=== PATIENT | male | born 1945 | race Caucasian/White ===

== ENCOUNTER → 2017-12-05 | Day surgery (SDC) | payer MEDICARE, BC ==
[~2017-12-05] MED LIST: Lactated Ringers 1,000 ML IV SCH; Propofol 200 MG/20 ML SDV IV ONE
--- NOTE | 2017-12-05 10:16 | OR ---
DATE OF OPERATION: 12/05/2017 PREOPERATIVE DIAGNOSIS: FAMILY HISTORY OF COLON CANCER. POSTOPERATIVE DIAGNOSIS: COLITIS. SURGEON: Jose J Howe MD PROCEDURE: FULL LENGTH COLONOSCOPY WITH BIOPSIES X4. ANESTHESIA: IMAGING TECH due to history of MS. COMPLICATIONS: None. SPECIMEN: Left-sided colon biopsies x4. FINDINGS: 1. Full-length colonoscopy. 2. Nonspecific and mild sigmoid and rectosigmoid colitis. RECOMMENDATIONS: Medical followup with Dr. Pelayo for routine colonoscopy every 5 years for family history of colon cancer. INDICATIONS: The patient was in for a physical. It had been 5 years since his last colonoscopy. He has a family history of colon cancer. DESCRIPTION OF PROCEDURE: The patient was prepped and draped, placed in the left lateral decubitus position. A lubricated Olympus colonoscope was inserted and safely and easily advanced to the cecum. Direct visualization of the ileocecal valve and appendiceal orifice was accomplished and the bowel prep was fine. Upon withdrawal of the scope, the cecum, ascending, transverse colon were completely benign. In the left colon starting in the mid sigmoid area and running to the rectosigmoid junction, the patient had a nonspecific and very mild colitis. No ulcerative changes. Biopsies x4 were taken randomly from the mid sigmoid to the rectosigmoid junction. There were no polyps, masses, ulcerations, or bleeding sites. No vascular abnormalities or signs of diverticula. The rectal vault was benign. Retroflexion of scope in the rectum showed no perianal lesions other than some hemorrhoids. Air was suctioned. Scope was removed without complication. STACI/BALDOMERO /[id number]
== END ==
LOC: CC.SDS 06:24
PROVIDERS: ATTEND Family Medicine
DX: K52.9 Noninfective gastroenteritis and colitis, unspecified (principal); M19.90 Unspecified osteoarthritis, unspecified site; N40.0 Benign prostatic hyperplasia without lower urinary tract symptoms; I10 Essential (primary) hypertension; I25.10 Atherosclerotic heart disease of native coronary artery without angina pectoris; J21.9 Acute bronchiolitis, unspecified; K21.9 Gastro-esophageal reflux disease without esophagitis; E55.9 Vitamin D deficiency, unspecified; E78.5 Hyperlipidemia, unspecified; E11.9 Type 2 diabetes mellitus without complications; G35 Multiple sclerosis; Z79.4 Long term (current) use of insulin; Z79.82 Long term (current) use of aspirin; Z79.899 Other long term (current) drug therapy; Z88.1 Allergy status to other antibiotic agents; Z88.2 Allergy status to sulfonamides; Z80.0 Family history of malignant neoplasm of digestive organs
CPT/HCPCS: 82962; J2704; J7120

== ENCOUNTER 2020-06-19 19:29 | Inpatient (IN) | payer MEDICARE, BC ==
--- NOTE | 2020-06-19 19:53 | EDM.PDOC ---
ED HPI GENERAL MEDICAL PROBLEM - General Chief Complaint: General Stated Complaint: fever weakness Time Seen by Provider: 06/19/20 19:45 Source of Information: Reports: Patient History Limitations: Reports: No Limitations - History of Present Illness INITIAL COMMENTS - FREE TEXT/NARRATIVE: States that yesterday he had shaking chills and fever and couldn't warm up took ibuprofen and fever broke and he felt better. This morning he was fine and ate normal dinner and then started with chills and fever again. He denies any pain. No cough. Did vomit once this evening and has not had any nausea or vomiting or diarrhea. No dysuria or frequency of urination. He has history of MS and notes that as soon as he gets sick he has problems with his right leg getting weaker and difficulty walking and this is his normal response. He has not had any neuro changes or symptoms other than that. He feels weak but he attributes that to his fever. Has been trying to increase his water intake because of his temp. Onset: Gradual Onset Date: 06/19/20 Location: Reports: Generalized Associated Symptoms: Reports: Fever/Chills, Weakness. Denies: Chest Pain, Cough, Headaches, Shortness of Breath - Related Data Allergies Allergy/AdvReac Type Severity Reaction Status Date / Time cefuroxime Allergy Shortness Verified 06/19/20 19:37 of Breath Sulfa (Sulfonamide Allergy Hives Verified 06/19/20 19:37 Antibiotics) Home Meds: Home Meds Aspirin 325 mg PO BEDTIME 06/22/14 [History] Cholecalciferol (Vitamin D3) [Vitamin D] 5,000 mg PO DAILY 06/22/14 [History] Dalfampridine [Ampyra] 10 mg PO Q12HR 06/22/14 [History] Insulin Detemir [Levemir] 38 unit SQ BID 06/22/14 [History] Lisinopril 5 mg PO DAILY 06/22/14 [History] Naproxen Sodium [Aleve] 440 mg PO DAILY 06/22/14 [History] atorvaSTATin [Lipitor] 20 mg PO BEDTIME 06/22/14 [History] Interferon Beta-1b [Betaseron] 1 ml SUBCUT Q48H 12/04/17 [History] Magnesium 500 mg PO DAILY 12/04/17 [History] Metoprolol Tartrate 25 mg PO BID 12/04/17 [History] Testosterone Cypionate 200 mg IM Q30D 12/04/17 [History] Folic Acid 1 mg PO DAILY 06/19/20 [History] SitaGLIPtin [Januvia] 100 mg PO DAILY 06/19/20 [History] Past Medical History Cardiovascular History: Reports: High Cholesterol, Hypertension Neurological History: Reports: MS Endocrine/Metabolic History: Reports: Diabetes, Type II - Past Surgical History Cardiovascular Surgical History: Reports: Coronary Artery Bypass Social & Family History - Tobacco Use Tobacco Use Status *Q: Never Tobacco User - Living Situation & Occupation Living situation: Reports: , with Spouse Occupation: Retired ED ROS GENERAL - Review of Systems Review Of Systems: See Below Constitutional: Reports: Fever, Chills, Weakness HEENT: Reports: No Symptoms Respiratory: Denies: Shortness of Breath, Cough Cardiovascular: Denies: Chest Pain, Edema GI/Abdominal: Denies: Abdominal Pain, Constipation, Diarrhea, Nausea, Vomiting : Denies: Dysuria, Flank Pain, Frequency, Urgency Musculoskeletal: Reports: Other (rightl leg weakness due to the MS) Skin: Reports: No Symptoms Neurological: Reports: Difficulty Walking (due to MS. Wears a brace on the right leg.). Denies: Confusion, Dizziness, Headache, Syncope Psychiatric: Denies: Anxiety, Confusion ED EXAM, GENERAL - Physical Exam Exam: See Below Exam Limited By: No Limitations General Appearance: Alert, Mild Distress Ears: Normal External Exam, Normal TMs Nose: Normal Inspection Throat/Mouth: Normal Inspection, Normal Oropharynx Head: Atraumatic, Normocephalic Neck: Normal Inspection, Supple, Full Range of Motion Respiratory/Chest: No Respiratory Distress, Lungs Clear, Normal Breath Sounds Cardiovascular: Regular Rate, Rhythm, No Edema GI/Abdominal: Normal Bowel Sounds, Soft, Non-Tender Extremities: Normal Inspection, Normal Range of Motion, Non-Tender, No Pedal Edema, Normal Capillary Refill Neurological: Alert, Oriented, Normal Cognition Skin Exam: Warm, Dry, Intact, Normal Color Course - Vital Signs Last Recorded V/S: Last Vital Signs Temp 102 F H 06/19/20 19:50 Pulse 96 06/19/20 19:50 Resp 18 06/19/20 20:24 BP 138/55 L 06/19/20 20:24 Pulse Ox 97 06/19/20 20:24 - Orders/Labs/Meds Orders: Active Orders 24 hr Category Date Time Status Chest 1V Frontal [CR] Stat Exams 06/19/20 19:34 Taken CULTURE BLOOD [BC] Stat Lab 06/19/20 20:10 Received CULTURE BLOOD [BC] Stat Lab 06/19/20 20:16 Received Blood Culture x2 Reflex Set [OM.PC] Stat Oth 06/19/20 20:07 Ordered Medication Orders Acetaminophen (Tylenol) 650 mg PO Q4H PRN PRN Reason: Pain (Mild 1-3)/fever Aspirin (Aspirin) 325 mg PO BEDTIME [facility] Atorvastatin Calcium (Lipitor) 20 mg PO BEDTIME [facility] Ceftriaxone Sodium (Rocephin) 1 gm IVPUSH Q24H [facility] Enoxaparin Sodium (Lovenox) 30 mg SUBCUT Q24H [facility] Folic Acid (Folic Acid) 1 mg PO DAILY [facility] Dextrose/Sodium Chloride (Dextrose 5%-1/2 Ns) 1,000 mls @ 100 mls/hr IV ASDIRECTED [facility] Azithromycin 500 mg/ Sodium (Chloride) 250 mls @ 250 mls/hr IV Q24H [facility] Lisinopril (Prinivil) 5 mg PO DAILY [facility] Metoprolol Tartrate (Lopressor) 25 mg PO BID [facility] Non-Formulary Medication (Dalfampridine [Ampyra]) 10 mg PO Q12HR [facility] Non-Formulary Medication (Insulin Detemir) 38 unit SQ BID [facility] Non-Formulary Medication (Interferon Beta-1b [Betaseron]) 1 ml SUBCUT Q48H [facility] Non-Formulary Medication (Magnesium [Magnesium]) 500 mg PO DAILY [facility] Non-Formulary Medication (Sitagliptin) 100 mg PO DAILY [facility] Labs: Laboratory Tests 06/19/20 06/19/20 06/19/20 Range/Units 07:45 07:45 07:45 WBC 13.6 H (5.0-10.0) 10^3/uL RBC 5.10 (4.50-6.00) 10^6/uL Hgb 15.4 (14.0-18.0) g/dL Hct 45.4 (40.0-54.0) % MCV 89.0 (82.0-94.0) fL MCH 30.2 (27.0-32.0) pg MCHC 33.9 (33.0-38.0) g/dL RDW Coeff of Laura 16.0 H (11.0-15.0) % Plt Count 200 (150-400) 10^3/uL Neut % (Auto) 85.8 H (35-85) % Lymph % (Auto) 7.0 L (10-55) % Arthur % (Auto) 7.0 (0-16) % Eos % (Auto) 0.1 (0-5) % Baso % (Auto) 0.1 (0-3) % Neut # (Auto) 11.70 H (1.80-7.00) 10^3/uL Lymph # (Auto) 0.95 L (1.00-4.80) 10^3/uL Arthur # (Auto) 0.95 H (0.00-0.80) 10^3/uL Eos # (Auto) 0.02 (0.00-0.45) 10^3/uL Baso # (Auto) 0.02 10^3/uL PT 10.5 (9.7-12.3) SEC INR 1.04 (0.92-1.18) D-Dimer, Quantitative 1.36 H (0.00-0.50) Sodium 134 L (136-145) mEq/L Potassium 5.1 H (3.5-5.0) mEq/L Chloride 100 (98-106) mEq/L Carbon Dioxide 27 (21-32) mmol/L BUN 49 H D (7-18) mg/dL Creatinine 2.5 H D (0.7-1.3) mg/dL Est Cr Clr Drug Dosing 27.17 mL/min Estimated GFR (MDRD) 25 L (>=60) mL/min Glucose 113 H D (75-99) mg/dL Lactic Acid (0.4-2.0) mmol/L Calcium 9.6 (8.4-10.1) mg/dL Total Bilirubin 0.5 (0.0-1.0) mg/dL AST 20 (15-37) U/L ALT 30 (12-78) U/L Alkaline Phosphatase 76 (46-116) U/L Creatine Kinase 131 (35-232) U/L Troponin I < 0.017 (0.00-0.06) ng/mL C-Reactive Protein (0.2-0.8) mg/dL NT-Pro-B Natriuret Pep 752 (0-1000) pg/mL Total Protein 8.3 H (6.4-8.2) g/dL Albumin 3.5 (3.4-5.0) g/dL Urine Color (YELLOW) Urine Appearance (CLEAR) Urine pH (4.5-8.0) Ur Specific [place] (1.003-1.020) Urine Protein (NEGATIVE) mg/dL Urine Glucose (UA) (NEGATIVE) mg/dL Urine Ketones (NEGATIVE) mg/dL Urine Occult Blood (NEGATIVE) Urine Nitrite (NEGATIVE) Urine Bilirubin (NEGATIVE) Urine Urobilinogen (0.2-1.0) EU/dL Ur Leukocyte Esterase (NEGATIVE) Urine RBC (0-5) /HPF Urine WBC (0-5) /HPF Ur Epithelial Cells (NOT SEEN) /HPF SARS CoV-2 RNA Rapid QAMAR (NEGATIVE) 06/19/20 06/19/20 06/19/20 Range/Units 07:45 19:32 20:00 WBC (5.0-10.0) 10^3/uL RBC (4.50-6.00) 10^6/uL Hgb (14.0-18.0) g/dL Hct (40.0-54.0) % MCV (82.0-94.0) fL MCH (27.0-32.0) pg MCHC (33.0-38.0) g/dL RDW Coeff of Laura (11.0-15.0) % Plt Count (150-400) 10^3/uL Neut % (Auto) (35-85) % Lymph % (Auto) (10-55) % Arthur % (Auto) (0-16) % Eos % (Auto) (0-5) % Baso % (Auto) (0-3) % Neut # (Auto) (1.80-7.00) 10^3/uL Lymph # (Auto) (1.00-4.80) 10^3/uL Arthur # (Auto) (0.00-0.80) 10^3/uL Eos # (Auto) (0.00-0.45) 10^3/uL Baso # (Auto) 10^3/uL PT (9.7-12.3) SEC INR (0.92-1.18) D-Dimer, Quantitative (0.00-0.50) Sodium (136-145) mEq/L Potassium (3.5-5.0) mEq/L Chloride (98-106) mEq/L Carbon Dioxide (21-32) mmol/L BUN (7-18) mg/dL Creatinine (0.7-1.3) mg/dL Est Cr Clr Drug Dosing mL/min Estimated GFR (MDRD) (>=60) mL/min Glucose (75-99) mg/dL Lactic Acid 0.9 (0.4-2.0) mmol/L Calcium (8.4-10.1) mg/dL Total Bilirubin (0.0-1.0) mg/dL AST (15-37) U/L ALT (12-78) U/L Alkaline Phosphatase (46-116) U/L Creatine Kinase (35-232) U/L Troponin I (0.00-0.06) ng/mL C-Reactive Protein 18.5 H (0.2-0.8) mg/dL NT-Pro-B Natriuret Pep (0-1000) pg/mL Total Protein (6.4-8.2) g/dL Albumin (3.4-5.0) g/dL Urine Color (YELLOW) Urine Appearance (CLEAR) Urine pH (4.5-8.0) Ur Specific [place] (1.003-1.020) Urine Protein (NEGATIVE) mg/dL Urine Glucose (UA) (NEGATIVE) mg/dL Urine Ketones (NEGATIVE) mg/dL Urine Occult Blood (NEGATIVE) Urine Nitrite (NEGATIVE) Urine Bilirubin (NEGATIVE) Urine Urobilinogen (0.2-1.0) EU/dL Ur Leukocyte Esterase (NEGATIVE) Urine RBC (0-5) /HPF Urine WBC (0-5) /HPF Ur Epithelial Cells (NOT SEEN) /HPF SARS CoV-2 RNA Rapid QAMAR Negative (NEGATIVE) 06/19/20 Range/Units 20:36 WBC (5.0-10.0) 10^3/uL RBC (4.50-6.00) 10^6/uL Hgb (14.0-18.0) g/dL Hct (40.0-54.0) % MCV (82.0-94.0) fL MCH (27.0-32.0) pg MCHC (33.0-38.0) g/dL RDW Coeff of Laura (11.0-15.0) % Plt Count (150-400) 10^3/uL Neut % (Auto) (35-85) % Lymph % (Auto) (10-55) % Arthur % (Auto) (0-16) % Eos % (Auto) (0-5) % Baso % (Auto) (0-3) % Neut # (Auto) (1.80-7.00) 10^3/uL Lymph # (Auto) (1.00-4.80) 10^3/uL Arthur # (Auto) (0.00-0.80) 10^3/uL Eos # (Auto) (0.00-0.45) 10^3/uL Baso # (Auto) 10^3/uL PT (9.7-12.3) SEC INR (0.92-1.18) D-Dimer, Quantitative (0.00-0.50) Sodium (136-145) mEq/L Potassium (3.5-5.0) mEq/L Chloride (98-106) mEq/L Carbon Dioxide (21-32) mmol/L BUN (7-18) mg/dL Creatinine (0.7-1.3) mg/dL Est Cr Clr Drug Dosing mL/min Estimated GFR (MDRD) (>=60) mL/min Glucose (75-99) mg/dL Lactic Acid (0.4-2.0) mmol/L Calcium (8.4-10.1) mg/dL Total Bilirubin (0.0-1.0) mg/dL AST (15-37) U/L ALT (12-78) U/L Alkaline Phosphatase (46-116) U/L Creatine Kinase (35-232) U/L Troponin I (0.00-0.06) ng/mL C-Reactive Protein (0.2-0.8) mg/dL NT-Pro-B Natriuret Pep (0-1000) pg/mL Total Protein (6.4-8.2) g/dL Albumin (3.4-5.0) g/dL Urine Color Yellow (YELLOW) Urine Appearance Slightly cloudy (CLEAR) Urine pH 5.5 (4.5-8.0) Ur Specific [place] 1.025 H (1.003-1.020) Urine Protein 30 H (NEGATIVE) mg/dL Urine Glucose (UA) Negative (NEGATIVE) mg/dL Urine Ketones Negative (NEGATIVE) mg/dL Urine Occult Blood Negative (NEGATIVE) Urine Nitrite Negative (NEGATIVE) Urine Bilirubin Negative (NEGATIVE) Urine Urobilinogen 0.2 (0.2-1.0) EU/dL Ur Leukocyte Esterase Negative (NEGATIVE) Urine RBC 0-5 (0-5) /HPF Urine WBC 0-5 (0-5) /HPF Ur Epithelial Cells Few H (NOT SEEN) /HPF SARS CoV-2 RNA Rapid QAMAR (NEGATIVE) Meds: Medications Generic Name Dose Route Start Last Admin Trade Name Freq PRN Reason Stop Dose Admin Acetaminophen 650 mg 06/19/20 21:32 Tylenol PO Q4H PRN Pain (Mild 1-3)/fever Aspirin 325 mg 06/20/20 20:00 Aspirin PO BEDTIME [facility] Atorvastatin Calcium 20 mg 06/20/20 20:00 Lipitor PO BEDTIME [facility] Ceftriaxone Sodium 1 gm 06/19/20 21:45 Rocephin IVPUSH Q24H [facility] Enoxaparin Sodium 30 mg 06/19/20 21:45 Lovenox SUBCUT Q24H [facility] Folic Acid 1 mg 06/20/20 08:00 Folic Acid PO DAILY [facility] Dextrose/Sodium Chloride 1,000 mls @ 100 mls/hr 06/19/20 21:45 Dextrose 5%-1/2 Ns IV ASDIRECTED [facility] Azithromycin 500 mg/ Sodium 250 mls @ 250 mls/hr 06/19/20 21:45 Chloride IV Q24H [facility] Lisinopril 5 mg 06/20/20 08:00 Prinivil PO DAILY [facility] Metoprolol Tartrate 25 mg 06/20/20 08:00 Lopressor PO BID [facility] Non-Formulary Medication 10 mg 06/19/20 21:45 Dalfampridine [Ampyra] PO Q12HR [facility] Non-Formulary Medication 38 unit 06/20/20 08:00 Insulin Detemir SQ BID [facility] Non-Formulary Medication 1 ml 06/19/20 21:45 Interferon Beta-1b [Betaseron] SUBCUT Q48H [facility] Non-Formulary Medication 500 mg 06/20/20 08:00 Magnesium [Magnesium] PO DAILY [facility] Non-Formulary Medication 100 mg 06/20/20 08:00 Sitagliptin PO DAILY [facility] - Re-Assessments/Exams Free Text/Narrative Re-Assessment/Exam: 06/19/20 21:05Discussed pt with Dr. Howe and he agrees with admission and plan of care. Departure - Departure Time of Disposition: 21:55 Disposition: Admitted As Inpatient 68 Clinical Impression: Fever of unknown origin, Acute renal insufficiency Clinical Impression: (Ruled Out): Renal injury - Discharge Information *PRESCRIPTION DRUG MONITORING PROGRAM REVIEWED*: Not Applicable *COPY OF PRESCRIPTION DRUG MONITORING REPORT IN PATIENT ROEL: Not Applicable Sepsis Event Note (ED) - Focused Exam Vital Signs: Vital Signs Temp Pulse Resp BP Pulse Ox 06/19/20 20:24 18 138/55 L 97 06/19/20 19:50 102 F H 96 18 169/74 H 97 - Problem List & Annotations (1) Fever of unknown origin SNOMED Code(s): 2316747 Code(s): R50.9 - FEVER, UNSPECIFIED Status: Acute Priority: High Current Visit: Yes (2) Acute renal insufficiency SNOMED Code(s): 435591731 Code(s): N28.9 - DISORDER OF KIDNEY AND URETER, UNSPECIFIED Status: Acute Priority: High Current Visit: Yes - Problem List Review Problem List Initiated/Reviewed/Updated: Yes - My Orders Last 24 Hours: My Active Orders 06/19/20 19:34 Chest 1V Frontal [CR] Stat 06/19/20 20:07 Blood Culture x2 Reflex Set [OM.PC] Stat 06/19/20 20:10 CULTURE BLOOD [BC] Stat 06/19/20 20:16 CULTURE BLOOD [BC] Stat - Assessment/Plan Admission H&P: Please use this note as an admission H&P Last 24 Hours: My Active Orders 06/19/20 19:34 Chest 1V Frontal [CR] Stat 06/19/20 20:07 Blood Culture x2 Reflex Set [OM.PC] Stat 06/19/20 20:10 CULTURE BLOOD [BC] Stat 06/19/20 20:16 CULTURE BLOOD [BC] Stat Plan: Pt will be admitted with sepsis workup due to the fever of unknown origin. will hydrate and monitor his creatinine as that is elevated. will do daily labs to monitor Repeat CXR in the AM If creatinine improves may need to consider CT for PE protocol
[2020-06-19 20:12] LABS: CHLORIDE,CL 100 mEq/L (98-106); SODIUM,NA 134 mEq/L (136-145)
[2020-06-19] MEDS ORDERED: Dextrose 5%-0.45% NaCl 1,000 ML IV SCH (21:45)
[2020-06-19] MEDS ORDERED: cefTRIAXone 1 GM Vial IVPUSH SCH (22:00)
[2020-06-19] MEDS: Enoxaparin 30 MG/0.3 ML Syringe SUBCUT SCH (22:54)
[2020-06-19] MEDS: Acetaminophen 325 MG Tab PO PRN (22:59)
[2020-06-19] MEDS ORDERED: Azithromycin 500 MG in Sodium Chloride 0.9% 250 ML IV SCH (23:00)
[2020-06-20] MEDS: Acetaminophen 325 MG Tab PO PRN (04:11)
[2020-06-20] MEDS: Lisinopril 5 MG Tab PO SCH (07:59)
[2020-06-20] MEDS: Metoprolol Tartrate 25 MG Tab PO SCH ×2 (07:59→19:39)
[2020-06-20] MEDS ORDERED: DALFAMPRIDINE 10 MG PO SCH (08:00)
[2020-06-20] MEDS: Folic Acid 1 MG Tab PO SCH (08:00)
[2020-06-20] MEDS: Insulin Glarg,Human.Rec.Analog 100 Unit/ML SUBCUT SCH ×2 (08:07→19:40)
[2020-06-20] MEDS ORDERED: INTERFERON BETA 1B SUBCUT SCH (09:00)
--- NOTE | 2020-06-20 09:53 | PCM.PN ---
- General Info Date of Service: 06/20/20 Admission Dx/Problem (Free Text): Fever unknown etiology Subjective Update: Shady is a 75 yo gentleman who was admitted yesterday secondary to fever/chills. Symptoms had started Friday and yesterday had progressively worsened. Was able to get some relief with ibuprofen in regards to his fevers. States yesterday morning he felt fine and ate normal dinner and then started with chills and fever again. He denies any discomfort. States he has had a lingering cough for awhile but no other upper respiratory symptoms. Denies any GI complaints, no nausea, vomiting or diarrhea. No dysuria or frequency of urination. He has history of MS and notes that as soon as he gets sick he has problems with his right leg getting weaker and difficulty walking and this is his normal response. States it is a lot better today. Overal today he feels back to his normal self. Denies any concerns at this time. Has been drinking fluids okay. Functional Status: Reports: Tolerating Diet, Ambulating, Urinating - Review of Systems General: Denies: Fever, Chills HEENT: Reports: No Symptoms Pulmonary: Reports: No Symptoms Cardiovascular: Reports: No Symptoms Gastrointestinal: Reports: No Symptoms Genitourinary: Reports: No Symptoms Musculoskeletal: Reports: No Symptoms Neurological: Reports: No Symptoms Psychiatric: Reports: No Symptoms - Patient Data Vitals - Most Recent: Last Vital Signs Temp 97.9 F 06/20/20 07:53 Pulse 71 06/20/20 07:59 Resp 18 06/20/20 07:53 BP 106/40 L 06/20/20 07:59 Pulse Ox 96 06/20/20 07:53 Weight - Most Recent: 248 lb Lab Results Last 24 Hours: Laboratory Results - last 24 hr 06/19/20 06/19/20 06/19/20 Range/Units 07:45 07:45 07:45 WBC 13.6 H (5.0-10.0) 10^3/uL RBC 5.10 (4.50-6.00) 10^6/uL Hgb 15.4 (14.0-18.0) g/dL Hct 45.4 (40.0-54.0) % MCV 89.0 (82.0-94.0) fL MCH 30.2 (27.0-32.0) pg MCHC 33.9 (33.0-38.0) g/dL RDW Coeff of Laura 16.0 H (11.0-15.0) % Plt Count 200 (150-400) 10^3/uL Neut % (Auto) 85.8 H (35-85) % Lymph % (Auto) 7.0 L (10-55) % [place] % (Auto) 7.0 (0-16) % Eos % (Auto) 0.1 (0-5) % Baso % (Auto) 0.1 (0-3) % Neut # (Auto) 11.70 H (1.80-7.00) 10^3/uL Lymph # (Auto) 0.95 L (1.00-4.80) 10^3/uL [place] # (Auto) 0.95 H (0.00-0.80) 10^3/uL Eos # (Auto) 0.02 (0.00-0.45) 10^3/uL Baso # (Auto) 0.02 10^3/uL PT 10.5 (9.7-12.3) SEC INR 1.04 (0.92-1.18) D-Dimer, Quantitative 1.36 H (0.00-0.50) Sodium 134 L (136-145) mEq/L Potassium 5.1 H (3.5-5.0) mEq/L Chloride 100 (98-106) mEq/L Carbon Dioxide 27 (21-32) mmol/L BUN 49 H D (7-18) mg/dL Creatinine 2.5 H D (0.7-1.3) mg/dL Est Cr Clr Drug Dosing 27.17 mL/min Estimated GFR (MDRD) 25 L (>=60) mL/min Glucose 113 H D (75-99) mg/dL Lactic Acid (0.4-2.0) mmol/L Calcium 9.6 (8.4-10.1) mg/dL Total Bilirubin 0.5 (0.0-1.0) mg/dL AST 20 (15-37) U/L ALT 30 (12-78) U/L Alkaline Phosphatase 76 (46-116) U/L Creatine Kinase 131 (35-232) U/L Troponin I < 0.017 (0.00-0.06) ng/mL C-Reactive Protein (0.2-0.8) mg/dL NT-Pro-B Natriuret Pep 752 (0-1000) pg/mL Total Protein 8.3 H (6.4-8.2) g/dL Albumin 3.5 (3.4-5.0) g/dL Urine Color (YELLOW) Urine Appearance (CLEAR) Urine pH (4.5-8.0) Ur Specific Harvey (1.003-1.020) Urine Protein (NEGATIVE) mg/dL Urine Glucose (UA) (NEGATIVE) mg/dL Urine Ketones (NEGATIVE) mg/dL Urine Occult Blood (NEGATIVE) Urine Nitrite (NEGATIVE) Urine Bilirubin (NEGATIVE) Urine Urobilinogen (0.2-1.0) EU/dL Ur Leukocyte Esterase (NEGATIVE) Urine RBC (0-5) /HPF Urine WBC (0-5) /HPF Ur Epithelial Cells (NOT SEEN) /HPF SARS CoV-2 RNA Rapid QAMAR (NEGATIVE) 06/19/20 06/19/20 06/19/20 Range/Units 07:45 19:32 20:00 WBC (5.0-10.0) 10^3/uL RBC (4.50-6.00) 10^6/uL Hgb (14.0-18.0) g/dL Hct (40.0-54.0) % MCV (82.0-94.0) fL MCH (27.0-32.0) pg MCHC (33.0-38.0) g/dL RDW Coeff of Laura (11.0-15.0) % Plt Count (150-400) 10^3/uL Neut % (Auto) (35-85) % Lymph % (Auto) (10-55) % [place] % (Auto) (0-16) % Eos % (Auto) (0-5) % Baso % (Auto) (0-3) % Neut # (Auto) (1.80-7.00) 10^3/uL Lymph # (Auto) (1.00-4.80) 10^3/uL [place] # (Auto) (0.00-0.80) 10^3/uL Eos # (Auto) (0.00-0.45) 10^3/uL Baso # (Auto) 10^3/uL PT (9.7-12.3) SEC INR (0.92-1.18) D-Dimer, Quantitative (0.00-0.50) Sodium (136-145) mEq/L Potassium (3.5-5.0) mEq/L Chloride (98-106) mEq/L Carbon Dioxide (21-32) mmol/L BUN (7-18) mg/dL Creatinine (0.7-1.3) mg/dL Est Cr Clr Drug Dosing mL/min Estimated GFR (MDRD) (>=60) mL/min Glucose (75-99) mg/dL Lactic Acid 0.9 (0.4-2.0) mmol/L Calcium (8.4-10.1) mg/dL Total Bilirubin (0.0-1.0) mg/dL AST (15-37) U/L ALT (12-78) U/L Alkaline Phosphatase (46-116) U/L Creatine Kinase (35-232) U/L Troponin I (0.00-0.06) ng/mL C-Reactive Protein 18.5 H (0.2-0.8) mg/dL NT-Pro-B Natriuret Pep (0-1000) pg/mL Total Protein (6.4-8.2) g/dL Albumin (3.4-5.0) g/dL Urine Color (YELLOW) Urine Appearance (CLEAR) Urine pH (4.5-8.0) Ur Specific Harvey (1.003-1.020) Urine Protein (NEGATIVE) mg/dL Urine Glucose (UA) (NEGATIVE) mg/dL Urine Ketones (NEGATIVE) mg/dL Urine Occult Blood (NEGATIVE) Urine Nitrite (NEGATIVE) Urine Bilirubin (NEGATIVE) Urine Urobilinogen (0.2-1.0) EU/dL Ur Leukocyte Esterase (NEGATIVE) Urine RBC (0-5) /HPF Urine WBC (0-5) /HPF Ur Epithelial Cells (NOT SEEN) /HPF SARS CoV-2 RNA Rapid QAMAR Negative (NEGATIVE) 06/19/20 06/20/20 06/20/20 Range/Units 20:36 07:02 07:02 WBC 13.3 H (5.0-10.0) 10^3/uL RBC 4.31 L (4.50-6.00) 10^6/uL Hgb 12.9 L (14.0-18.0) g/dL Hct 38.8 L (40.0-54.0) % MCV 90.0 (82.0-94.0) fL MCH 29.9 (27.0-32.0) pg MCHC 33.2 (33.0-38.0) g/dL RDW Coeff of Laura 15.8 H (11.0-15.0) % Plt Count 173 (150-400) 10^3/uL Neut % (Auto) 82.7 (35-85) % Lymph % (Auto) 8.6 L (10-55) % [place] % (Auto) 8.3 (0-16) % Eos % (Auto) 0.2 (0-5) % Baso % (Auto) 0.2 (0-3) % Neut # (Auto) 11.01 H (1.80-7.00) 10^3/uL Lymph # (Auto) 1.15 (1.00-4.80) 10^3/uL [place] # (Auto) 1.11 H (0.00-0.80) 10^3/uL Eos # (Auto) 0.02 (0.00-0.45) 10^3/uL Baso # (Auto) 0.02 10^3/uL PT (9.7-12.3) SEC INR (0.92-1.18) D-Dimer, Quantitative (0.00-0.50) Sodium 134 L (136-145) mEq/L Potassium 4.9 (3.5-5.0) mEq/L Chloride 100 (98-106) mEq/L Carbon Dioxide 24 (21-32) mmol/L BUN 51 H (7-18) mg/dL Creatinine 2.6 H* (0.7-1.3) mg/dL Est Cr Clr Drug Dosing 26.13 mL/min Estimated GFR (MDRD) 24 L (>=60) mL/min Glucose 153 H D (75-99) mg/dL Lactic Acid (0.4-2.0) mmol/L Calcium 8.5 (8.4-10.1) mg/dL Total Bilirubin (0.0-1.0) mg/dL AST (15-37) U/L ALT (12-78) U/L Alkaline Phosphatase (46-116) U/L Creatine Kinase (35-232) U/L Troponin I (0.00-0.06) ng/mL C-Reactive Protein 24.5 H (0.2-0.8) mg/dL NT-Pro-B Natriuret Pep (0-1000) pg/mL Total Protein (6.4-8.2) g/dL Albumin (3.4-5.0) g/dL Urine Color Yellow (YELLOW) Urine Appearance Slightly cloudy (CLEAR) Urine pH 5.5 (4.5-8.0) Ur Specific Harvey 1.025 H (1.003-1.020) Urine Protein 30 H (NEGATIVE) mg/dL Urine Glucose (UA) Negative (NEGATIVE) mg/dL Urine Ketones Negative (NEGATIVE) mg/dL Urine Occult Blood Negative (NEGATIVE) Urine Nitrite Negative (NEGATIVE) Urine Bilirubin Negative (NEGATIVE) Urine Urobilinogen 0.2 (0.2-1.0) EU/dL Ur Leukocyte Esterase Negative (NEGATIVE) Urine RBC 0-5 (0-5) /HPF Urine WBC 0-5 (0-5) /HPF Ur Epithelial Cells Few H (NOT SEEN) /HPF SARS CoV-2 RNA Rapid QAMAR (NEGATIVE) 06/20/20 Range/Units 07:02 WBC (5.0-10.0) 10^3/uL RBC (4.50-6.00) 10^6/uL Hgb (14.0-18.0) g/dL Hct (40.0-54.0) % MCV (82.0-94.0) fL MCH (27.0-32.0) pg MCHC (33.0-38.0) g/dL RDW Coeff of Laura (11.0-15.0) % Plt Count (150-400) 10^3/uL Neut % (Auto) (35-85) % Lymph % (Auto) (10-55) % [place] % (Auto) (0-16) % Eos % (Auto) (0-5) % Baso % (Auto) (0-3) % Neut # (Auto) (1.80-7.00) 10^3/uL Lymph # (Auto) (1.00-4.80) 10^3/uL [place] # (Auto) (0.00-0.80) 10^3/uL Eos # (Auto) (0.00-0.45) 10^3/uL Baso # (Auto) 10^3/uL PT (9.7-12.3) SEC INR (0.92-1.18) D-Dimer, Quantitative 1.83 H (0.00-0.50) Sodium (136-145) mEq/L Potassium (3.5-5.0) mEq/L Chloride (98-106) mEq/L Carbon Dioxide (21-32) mmol/L BUN (7-18) mg/dL Creatinine (0.7-1.3) mg/dL Est Cr Clr Drug Dosing mL/min Estimated GFR (MDRD) (>=60) mL/min Glucose (75-99) mg/dL Lactic Acid (0.4-2.0) mmol/L Calcium (8.4-10.1) mg/dL Total Bilirubin (0.0-1.0) mg/dL AST (15-37) U/L ALT (12-78) U/L Alkaline Phosphatase (46-116) U/L Creatine Kinase (35-232) U/L Troponin I (0.00-0.06) ng/mL C-Reactive Protein (0.2-0.8) mg/dL NT-Pro-B Natriuret Pep (0-1000) pg/mL Total Protein (6.4-8.2) g/dL Albumin (3.4-5.0) g/dL Urine Color (YELLOW) Urine Appearance (CLEAR) Urine pH (4.5-8.0) Ur Specific Harvey (1.003-1.020) Urine Protein (NEGATIVE) mg/dL Urine Glucose (UA) (NEGATIVE) mg/dL Urine Ketones (NEGATIVE) mg/dL Urine Occult Blood (NEGATIVE) Urine Nitrite (NEGATIVE) Urine Bilirubin (NEGATIVE) Urine Urobilinogen (0.2-1.0) EU/dL Ur Leukocyte Esterase (NEGATIVE) Urine RBC (0-5) /HPF Urine WBC (0-5) /HPF Ur Epithelial Cells (NOT SEEN) /HPF SARS CoV-2 RNA Rapid QAMAR (NEGATIVE) Ivan Results Last 24 Hours: Microbiology 06/19/20 20:16 Aerobic Blood Culture - Preliminary Blood - Venous - Lab Draw Gram Positive Cocci Anaerobic Blood Culture - Preliminary Gram Positive Cocci 06/19/20 20:10 Aerobic Blood Culture - Preliminary Blood - Venous Gram Positive Cocci Anaerobic Blood Culture - Preliminary Gram Positive Cocci Med Orders - Current: Current Medications Acetaminophen (Tylenol) 650 mg PO Q4H PRN PRN Reason: Pain (Mild 1-3)/fever Last Admin: 06/20/20 04:11 Dose: 650 mg Documented by: Alogliptin Benzoate (Alogliptin) 6.25 mg PO DAILY [facility] Last Admin: 06/20/20 07:58 Dose: 6.25 mg Documented by: Aspirin (Aspirin) 325 mg PO BEDTIME [facility] Atorvastatin Calcium (Lipitor) 20 mg PO BEDTIME [facility] Ceftriaxone Sodium (Rocephin) 1 gm IVPUSH Q24H [facility] Last Admin: 06/19/20 22:54 Dose: 1 gm Documented by: Enoxaparin Sodium (Lovenox) 30 mg SUBCUT BEDTIME [facility] Last Admin: 06/19/20 22:54 Dose: 30 mg Documented by: Folic Acid (Folic Acid) 1 mg PO DAILY [facility] Last Admin: 06/20/20 08:00 Dose: 1 mg Documented by: Azithromycin 500 mg/ Sodium (Chloride) 250 mls @ 250 mls/hr IV Q24H [facility] Last Admin: 06/19/20 22:54 Dose: 250 mls/hr Documented by: Sodium Chloride (Normal Saline) 1,000 mls @ 50 mls/hr IV ASDIRECTED [facility] Insulin Glargine (Lantus) 38 unit SUBCUT BID [facility] Last Admin: 06/20/20 08:07 Dose: 38 unit Documented by: Lisinopril (Prinivil) 5 mg PO DAILY [facility] Last Admin: 06/20/20 07:59 Dose: 5 mg Documented by: Magnesium Oxide (Magnesium Oxide) 500 mg PO DAILY [facility] Last Admin: 06/20/20 08:00 Dose: 500 mg Documented by: Metoprolol Tartrate (Lopressor) 25 mg PO BID [facility] Last Admin: 06/20/20 07:59 Dose: 25 mg Documented by: Dalfampridine [ (Ampyra] 10mg) 10 mg PO BID [facility] Interferon Beta-1b [ (Betaseron] 1ml) 1 ml SUBCUT Q48H [facility] Vancomycin HCl (Pharmacy To Dose - Vancomycin) 1 dose .XX ONETIME ONE Stop: 06/20/20 09:46 Discontinued Medications Dextrose/Sodium Chloride (Dextrose 5%-1/2 Ns) 1,000 mls @ 100 mls/hr IV ASDIRECTED [facility] Last Admin: 06/19/20 22:54 Dose: 100 mls/hr Documented by: - Exam General: Alert, Oriented, Cooperative, No Acute Distress (sitting up in chair having normal conversation) Neck: Supple Lungs: Clear to Auscultation, Normal Respiratory Effort Cardiovascular: Regular Rate, Regular Rhythm, No Murmurs GI/Abdominal Exam: Normal Bowel Sounds, Soft, Non-Tender, No Organomegaly, No Distention. No: Tender Back Exam: No: CVA Tenderness (L), CVA Tenderness (R) Extremities: Non-Tender, Pedal Edema (trace bilateral lower extremities) Skin: Warm, Dry, Intact Neurological: No New Focal Deficit Psy/Mental Status: Alert, Normal Affect, Normal Mood Sepsis Event Note - Evaluation Sepsis Screening Result: No Definite Risk Current Stage of Sepsis: Sepsis Possible Source of Sepsis: Implantable Device - Focused Exam Sepsis Event Note Statement: Focused Sepsis Exam Completed Vital Signs: Vital Signs Temp Pulse Pulse Resp BP BP Pulse Ox 06/20/20 07:59 71 106/40 L 06/20/20 07:53 97.9 F 71 18 106/40 L 96 06/20/20 05:53 98.6 F 06/20/20 04:00 101 F H 86 18 119/66 97 06/19/20 23:34 101.7 F H 78 18 132/75 97 Capillary Refill, Detail: Less than/Equal to (</=) 2 Seconds Pulse Description: 2+ Normal Peripheral Pulse Location: Dorsalis Pedis Skin Exam (Focused Sepsis): Normal Turgor Date Exam was Performed: 06/20/20 Time Exam was Performed: 09:30 - Problem List & Annotations (1) Bacteremia due to Gram-positive bacteria SNOMED Code(s): 436187680760 Code(s): R78.81 - BACTEREMIA Status: Acute Current Visit: Yes - Problem List Review Problem List Initiated/Reviewed/Updated: Yes - My Orders Last 24 Hours: My Active Orders 06/20/20 09:45 Pharmacy to Dose - Vancomycin 1 dose .XX ONETIME ONE 06/20/20 09:46 Echo Comp wo Cont [US] Stat 06/20/20 10:00 Sodium Chloride 0.9% @ 50 MLS/HR(1000ml) Sodium Chloride 0.9% [Normal Saline] 1,000 ml IV ASDIRECTED - Assessment Assessment:: Bactermia - Plan Plan:: Shady appears to be doing well today. Laboratory results continue to show mery vated WBC, CRP, D-dimer, creatinine. Will slow IV fluids down to 50ml/hr. Will give dose of Vancomycin today as blood cultures are initially positive. Repeat chest x-ray was negative this morning. Will closely monitor. Echocardiogram to be completed today. Patient will be put on telemetry.
[2020-06-20] MEDS: Sodium Chloride 0.9% 1,000 ML IV SCH (10:07)
[2020-06-20] MEDS: Enoxaparin 30 MG/0.3 ML Syringe SUBCUT SCH (19:39)
[2020-06-20] MEDS: atorvaSTATin 20 MG Tab PO SCH (19:39)
[2020-06-20] MEDS: Azithromycin 500 MG in Sodium Chloride 0.9% 250 ML IV SCH (19:39)
[2020-06-20] MEDS: Aspirin 325 MG Tab PO SCH (19:39)
[2020-06-20] MEDS ORDERED: cefTRIAXone 1 GM Vial IVPUSH SCH (20:00)
[2020-06-21] MEDS: Folic Acid 1 MG Tab PO SCH (08:15)
[2020-06-21] MEDS: Lisinopril 5 MG Tab PO SCH (08:16)
[2020-06-21] MEDS: Metoprolol Tartrate 25 MG Tab PO SCH ×2 (08:16→19:45)
[2020-06-21] MEDS: Insulin Glarg,Human.Rec.Analog 100 Unit/ML SUBCUT SCH ×2 (08:17→19:47)
[2020-06-21] MEDS: Sodium Chloride 0.9% 1,000 ML IV SCH (08:19)
--- NOTE | 2020-06-21 09:49 | PCM.PN ---
- General Info Date of Service: 06/21/20 Admission Dx/Problem (Free Text): Fever unknown etiology Subjective Update: Shady is a 75 yo gentleman who was admitted to the hospital on the 17 of June secondary to fever/chills. Symptoms had started that Friday and overnight progressively worsened. Was able to get some relief with ibuprofen in regards to his fevers. States Friday morning he felt fine and ate normal dinner and then started with chills and fever again. He denies any discomfort. States he has had a lingering cough for awhile but no other upper respiratory symptoms. Denies any GI complaints, no nausea, vomiting or diarrhea. No dysuria or frequency of urination. He has history of MS and notes that as soon as he gets sick he has problems with his right leg getting weaker and difficulty walking and this is his normal response. States he did have some redness, warmth and s welling to the left lower extremity last night. Denies any discomfort with it. Overall, continues to feel much improved since admission. Functional Status: Reports: Pain Controlled, Tolerating Diet, Ambulating, Urinating - Review of Systems General: Denies: Fever, Weakness, Chills HEENT: Reports: No Symptoms Pulmonary: Reports: No Symptoms Cardiovascular: Reports: No Symptoms Gastrointestinal: Reports: No Symptoms Genitourinary: Reports: No Symptoms Musculoskeletal: Reports: No Symptoms Skin: Reports: Rash Neurological: Reports: No Symptoms Psychiatric: Reports: No Symptoms - Patient Data Vitals - Most Recent: Last Vital Signs Temp 98.6 F 06/21/20 08:00 Pulse 68 06/21/20 08:16 Resp 20 06/21/20 08:00 BP 141/56 H 06/21/20 08:16 Pulse Ox 97 06/21/20 08:00 Weight - Most Recent: 248 lb I&O - Last 24 Hours: Intake & Output 06/20/20 06/21/20 06/21/20 22:59 06:59 14:59 Intake Total 400 1200 Output Total 800 500 Balance -400 700 Lab Results Last 24 Hours: Laboratory Results - last 24 hr 06/20/20 06/20/20 06/20/20 Range/Units 11:14 17:14 19:38 WBC (5.0-10.0) 10^3/uL RBC (4.50-6.00) 10^6/uL Hgb (14.0-18.0) g/dL Hct (40.0-54.0) % MCV (82.0-94.0) fL MCH (27.0-32.0) pg MCHC (33.0-38.0) g/dL RDW Coeff of Laura (11.0-15.0) % Plt Count (150-400) 10^3/uL Neut % (Auto) (35-85) % Lymph % (Auto) (10-55) % [place] % (Auto) (0-16) % Eos % (Auto) (0-5) % Baso % (Auto) (0-3) % Neut # (Auto) (1.80-7.00) 10^3/uL Lymph # (Auto) (1.00-4.80) 10^3/uL [place] # (Auto) (0.00-0.80) 10^3/uL Eos # (Auto) (0.00-0.45) 10^3/uL Baso # (Auto) 10^3/uL D-Dimer, Quantitative (0.00-0.50) Sodium (136-145) mEq/L Potassium (3.5-5.0) mEq/L Chloride (98-106) mEq/L Carbon Dioxide (21-32) mmol/L BUN (7-18) mg/dL Creatinine (0.7-1.3) mg/dL Est Cr Clr Drug Dosing mL/min Estimated GFR (MDRD) (>=60) mL/min Glucose (75-99) mg/dL POC Glucose 151 H 199 H 248 H (75-105) mg/dl Calcium (8.4-10.1) mg/dL C-Reactive Protein (0.2-0.8) mg/dL 06/21/20 06/21/20 06/21/20 Range/Units 07:00 07:00 07:00 WBC 9.4 (5.0-10.0) 10^3/uL RBC 4.44 L (4.50-6.00) 10^6/uL Hgb 13.2 L (14.0-18.0) g/dL Hct 40.2 (40.0-54.0) % MCV 90.5 (82.0-94.0) fL MCH 29.7 (27.0-32.0) pg MCHC 32.8 L (33.0-38.0) g/dL RDW Coeff of Laura 15.7 H (11.0-15.0) % Plt Count 185 (150-400) 10^3/uL Neut % (Auto) 76.2 (35-85) % Lymph % (Auto) 12.6 (10-55) % [place] % (Auto) 9.0 (0-16) % Eos % (Auto) 2.1 (0-5) % Baso % (Auto) 0.1 (0-3) % Neut # (Auto) 7.12 H (1.80-7.00) 10^3/uL Lymph # (Auto) 1.18 (1.00-4.80) 10^3/uL [place] # (Auto) 0.84 H (0.00-0.80) 10^3/uL Eos # (Auto) 0.20 (0.00-0.45) 10^3/uL Baso # (Auto) 0.01 10^3/uL D-Dimer, Quantitative 1.22 H (0.00-0.50) Sodium 137 (136-145) mEq/L Potassium 4.7 (3.5-5.0) mEq/L Chloride 104 (98-106) mEq/L Carbon Dioxide 25 (21-32) mmol/L BUN 41 H (7-18) mg/dL Creatinine 1.9 H (0.7-1.3) mg/dL Est Cr Clr Drug Dosing 35.75 mL/min Estimated GFR (MDRD) 35 L (>=60) mL/min Glucose 112 H D (75-99) mg/dL POC Glucose (75-105) mg/dl Calcium 8.4 (8.4-10.1) mg/dL C-Reactive Protein 24.2 H (0.2-0.8) mg/dL 06/21/20 Range/Units 08:03 WBC (5.0-10.0) 10^3/uL RBC (4.50-6.00) 10^6/uL Hgb (14.0-18.0) g/dL Hct (40.0-54.0) % MCV (82.0-94.0) fL MCH (27.0-32.0) pg MCHC (33.0-38.0) g/dL RDW Coeff of Laura (11.0-15.0) % Plt Count (150-400) 10^3/uL Neut % (Auto) (35-85) % Lymph % (Auto) (10-55) % [place] % (Auto) (0-16) % Eos % (Auto) (0-5) % Baso % (Auto) (0-3) % Neut # (Auto) (1.80-7.00) 10^3/uL Lymph # (Auto) (1.00-4.80) 10^3/uL Nance # (Auto) (0.00-0.80) 10^3/uL Eos # (Auto) (0.00-0.45) 10^3/uL Baso # (Auto) 10^3/uL D-Dimer, Quantitative (0.00-0.50) Sodium (136-145) mEq/L Potassium (3.5-5.0) mEq/L Chloride (98-106) mEq/L Carbon Dioxide (21-32) mmol/L BUN (7-18) mg/dL Creatinine (0.7-1.3) mg/dL Est Cr Clr Drug Dosing mL/min Estimated GFR (MDRD) (>=60) mL/min Glucose (75-99) mg/dL POC Glucose 123 H (75-105) mg/dl Calcium (8.4-10.1) mg/dL C-Reactive Protein (0.2-0.8) mg/dL Ivan Results Last 24 Hours: Microbiology 06/19/20 20:10 Aerobic Blood Culture - Preliminary Blood - Venous Gram Positive Cocci Anaerobic Blood Culture - Preliminary Gram Positive Cocci 06/19/20 20:16 Aerobic Blood Culture - Preliminary Blood - Venous - Lab Draw Gram Positive Cocci Anaerobic Blood Culture - Preliminary Gram Positive Cocci Med Orders - Current: Current Medications Acetaminophen (Tylenol) 650 mg PO Q4H PRN PRN Reason: Pain (Mild 1-3)/fever Last Admin: 06/20/20 04:11 Dose: 650 mg Documented by: Alogliptin Benzoate (Alogliptin) 6.25 mg PO DAILY [facility] Last Admin: 06/21/20 08:13 Dose: 6.25 mg Documented by: Aspirin (Aspirin) 325 mg PO BEDTIME [facility] Last Admin: 06/20/20 19:39 Dose: 325 mg Documented by: Atorvastatin Calcium (Lipitor) 20 mg PO BEDTIME [facility] Last Admin: 06/20/20 19:39 Dose: 20 mg Documented by: Ceftriaxone Sodium (Rocephin) 1 gm IVPUSH DAILY@1999 [facility] Last Admin: 06/20/20 19:38 Dose: 1 gm Documented by: Enoxaparin Sodium (Lovenox) 30 mg SUBCUT BEDTIME [facility] Last Admin: 06/20/20 19:39 Dose: 30 mg Documented by: Folic Acid (Folic Acid) 1 mg PO DAILY [facility] Last Admin: 06/21/20 08:15 Dose: 1 mg Documented by: Sodium Chloride (Normal Saline) 1,000 mls @ 50 mls/hr IV ASDIRECTED [facility] Last Admin: 06/21/20 08:19 Dose: 50 mls/hr Documented by: Azithromycin 500 mg/ Sodium (Chloride) 250 mls @ 250 mls/hr IV DAILY@1999 [facility] Last Admin: 06/20/20 19:39 Dose: 250 mls/hr Documented by: Insulin Glargine (Lantus) 38 unit SUBCUT BID [facility] Last Admin: 06/21/20 08:17 Dose: 38 unit Documented by: Lisinopril (Prinivil) 5 mg PO DAILY [facility] Last Admin: 06/21/20 08:16 Dose: 5 mg Documented by: Magnesium Oxide (Magnesium Oxide) 500 mg PO DAILY [facility] Last Admin: 06/21/20 08:16 Dose: 500 mg Documented by: Metoprolol Tartrate (Lopressor) 25 mg PO BID [facility] Last Admin: 06/21/20 08:16 Dose: 25 mg Documented by: Dalfampridine [ (Ampyra] 10mg) 10 mg PO BID [facility] Interferon Beta-1b [ (Betaseron] 1ml) 1 ml SUBCUT Q48H [facility] Vancomycin HCl (Pharmacy To Dose - Vancomycin) 1 dose .XX ASDIRECTED [facility] Discontinued Medications Ceftriaxone Sodium (Rocephin) 1 gm IVPUSH Q24H [facility] Last Admin: 06/19/20 22:54 Dose: 1 gm Documented by: Dextrose/Sodium Chloride (Dextrose 5%-1/2 Ns) 1,000 mls @ 100 mls/hr IV ASDIRECTED [facility] Last Admin: 12/28/20 22:54 Dose: 100 mls/hr Documented by: Azithromycin 500 mg/ Sodium (Chloride) 250 mls @ 250 mls/hr IV Q24H [facility] Last Admin: 06/19/20 22:54 Dose: 250 mls/hr Documented by: Vancomycin HCl 1.25 gm/ Sodium (Chloride) 250 mls @ 167 mls/hr IV ONETIME ONE Stop: 06/20/20 12:14 Vancomycin HCl 1.25 gm/ Sodium (Chloride) 250 mls @ 167.007 mls/hr IV ONETIME ONE Stop: 06/20/20 12:14 Last Admin: 06/20/20 11:03 Dose: 167.007 mls/hr Documented by: Vancomycin HCl (Pharmacy To Dose - Vancomycin) 1 dose .XX ONETIME ONE Stop: 06/20/20 09:46 - Exam General: Alert, Oriented, Cooperative, No Acute Distress Lungs: Clear to Auscultation, Normal Respiratory Effort. No: Crackles, Rales, Rhonchi Cardiovascular: Regular Rate, Regular Rhythm GI/Abdominal Exam: Normal Bowel Sounds, Soft, Non-Tender, No Distention Extremities: Pedal Edema (1+ LLE), Increased Warmth (LLE), Redness (LLE), Other (area is improved from tracing initially last night. Non-tender to touch. No drainage or open sores noted to LLE) Skin: Rash (see above under extremities) Wound/Incisions: No Drainage, Erythema Improving Neurological: No New Focal Deficit Sepsis Event Note - Evaluation Sepsis Screening Result: No Definite Risk - Focused Exam Vital Signs: Vital Signs Temp Pulse Pulse Resp BP BP Pulse Ox 06/21/20 08:16 68 141/56 H 06/21/20 08:00 98.6 F 68 20 141/56 H 97 06/21/20 04:00 98 F 16 125/50 L 99 06/21/20 00:00 98.6 F 16 140/60 98 - Problem List & Annotations (1) Cellulitis of left anterior lower leg SNOMED Code(s): 349494192 Code(s): L03.116 - CELLULITIS OF LEFT LOWER LIMB Status: Acute Priority: High Current Visit: Yes (2) Bacteremia due to Gram-positive bacteria SNOMED Code(s): 557107400739 Code(s): R78.81 - BACTEREMIA Status: Acute Current Visit: Yes - Problem List Review Problem List Initiated/Reviewed/Updated: Yes - My Orders Last 24 Hours: My Active Orders 06/20/20 09:46 Echo Comp wo Cont [US] Stat 06/20/20 09:54 Telemetry Monitoring [Cardiac Monitoring] [RC] 06/20/20 10:00 Sodium Chloride 0.9% [Normal Saline] 1,000 ml IV ASDIRECTED 06/20/20 20:37 Consult to Physical Therapy [PT Evaluation and Treatment] [CONS] Routine 06/21/20 09:45 Pharmacy to Dose - Vancomycin 1 dose .XX ASDIRECTED - Assessment Assessment:: Bactermia - Plan Plan:: Shady appears to be doing well today. Laboratory results continue to show elevated WBC, CRP, D-dimer, creatinine. Will slow IV fluids down to 50ml/hr. Will give dose of Vancomycin today as blood cultures are initially positive. Repeat chest x-ray was negative this morning. Will closely monitor. Echocardiogram to be completed today. Patient will be put on telemetry. 06/21/2020 Patient started to develop a cellulitis of the left lower extremity last night. Blood cultures obtained and today show Group B strep. Will d/c Vancomycin and continue with Rocephin 2 gm daily with Azithromycin. Will repeat labs in am. WBC much improved today. CRP is slightly decreased as well. Discussed current plan with Shady and is in agreement.
[2020-06-21] MEDS: cefTRIAXone 2 GM Vial IVPUSH SCH (19:45)
[2020-06-21] MEDS: atorvaSTATin 20 MG Tab PO SCH (19:45)
[2020-06-21] MEDS: Aspirin 325 MG Tab PO SCH (19:45)
[2020-06-21] MEDS: Enoxaparin 30 MG/0.3 ML Syringe SUBCUT SCH (19:46)
[2020-06-21] MEDS: Azithromycin 500 MG in Sodium Chloride 0.9% 250 ML IV SCH (19:48)
[2020-06-22] MEDS: Metoprolol Tartrate 25 MG Tab PO SCH ×2 (07:38→19:54)
[2020-06-22] MEDS: Folic Acid 1 MG Tab PO SCH (07:38)
[2020-06-22] MEDS: Lisinopril 5 MG Tab PO SCH (07:39)
[2020-06-22] MEDS: Insulin Glarg,Human.Rec.Analog 100 Unit/ML SUBCUT SCH ×2 (07:42→20:07)
[2020-06-22] MEDS: Clindamycin Phosphate in D5W 600 MG in Premix Bag 1 BAG IV SCH ×6 (08:29→19:58)
[2020-06-22] MEDS ORDERED: Nystatin Crm 30 GM Tube ONE (16:12)
[2020-06-22] MEDS: cefTRIAXone 2 GM Vial IVPUSH SCH (19:47)
[2020-06-22] MEDS: atorvaSTATin 20 MG Tab PO SCH (19:54)
[2020-06-22] MEDS: Enoxaparin 30 MG/0.3 ML Syringe SUBCUT SCH (19:54)
[2020-06-22] MEDS: Aspirin 325 MG Tab PO SCH (19:54)
[2020-06-22] MEDS: Nystatin Crm 30 GM Tube TOP SCH (19:56)
--- NOTE | 2020-06-22 21:58 | PCM.PN ---
- General Info Date of Service: 06/22/20 Admission Dx/Problem (Free Text): Fever unknown etiology Subjective Update: Shady is a 75 yo gentleman who was admitted to the hospital on the 17 of June secondary to fever/chills. Symptoms had started that Friday and overnight progressively worsened. Was able to get some relief with ibuprofen in regards to his fevers. States Friday morning he felt fine and ate normal dinner and then started with chills and fever again. He denies any discomfort. States he has had a lingering cough for awhile but no other upper respiratory symptoms. Denies any GI complaints, no nausea, vomiting or diarrhea. No dysuria or frequency of urination. He has history of MS and notes that as soon as he gets sick he has problems with his right leg getting weaker and difficulty walking and this is his normal response. Patient developed a cellulitis to the left lo wer extremity. Blood cultures were positive, pending final report for bacterial etiology. Functional Status: Reports: Pain Controlled, Tolerating Diet, Ambulating, Urinating. Denies: New Symptoms Pain Score: 0 - Review of Systems General: Denies: Fever, Weakness HEENT: Reports: No Symptoms Pulmonary: Reports: No Symptoms Cardiovascular: Reports: No Symptoms Gastrointestinal: Reports: No Symptoms Genitourinary: Reports: No Symptoms Musculoskeletal: Denies: Leg Pain, Foot Pain Skin: Reports: Rash. Denies: Pruritis Neurological: Reports: No Symptoms - Patient Data Vitals - Most Recent: Last Vital Signs Temp 98.8 F 06/22/20 20:00 Pulse 70 06/22/20 20:00 Resp 20 06/22/20 20:00 BP 158/55 H 06/22/20 20:00 Pulse Ox 97 06/22/20 20:00 Weight - Most Recent: 248 lb I&O - Last 24 Hours: Intake & Output 06/22/20 06/22/20 06/22/20 06:59 14:59 22:59 Intake Total 061 485 5070 Output Total 700 400 Balance -300 0 1200 Lab Results Last 24 Hours: Laboratory Results - last 24 hr 06/22/20 06/22/20 06/22/20 Range/Units 07:20 07:20 07:20 WBC 9.0 (5.0-10.0) 10^3/uL RBC 4.25 L (4.50-6.00) 10^6/uL Hgb 12.7 L (14.0-18.0) g/dL Hct 38.4 L (40.0-54.0) % MCV 90.4 (82.0-94.0) fL MCH 29.9 (27.0-32.0) pg MCHC 33.1 (33.0-38.0) g/dL RDW Coeff of Laura 15.3 H (11.0-15.0) % Plt Count 219 (150-400) 10^3/uL Neut % (Auto) 65.2 (35-85) % Lymph % (Auto) 19.6 (10-55) % [place] % (Auto) 11.2 (0-16) % Eos % (Auto) 3.8 (0-5) % Baso % (Auto) 0.2 (0-3) % Neut # (Auto) 5.87 (1.80-7.00) 10^3/uL Lymph # (Auto) 1.77 (1.00-4.80) 10^3/uL [place] # (Auto) 1.01 H (0.00-0.80) 10^3/uL Eos # (Auto) 0.34 (0.00-0.45) 10^3/uL Baso # (Auto) 0.02 10^3/uL D-Dimer, Quantitative 1.13 H (0.00-0.50) Sodium 140 (136-145) mEq/L Potassium 4.5 (3.5-5.0) mEq/L Chloride 106 (98-106) mEq/L Carbon Dioxide 24 (21-32) mmol/L BUN 32 H (7-18) mg/dL Creatinine 1.6 H (0.7-1.3) mg/dL Est Cr Clr Drug Dosing 42.46 mL/min Estimated GFR (MDRD) 43 L (>=60) mL/min Glucose 79 D (75-99) mg/dL POC Glucose (75-105) mg/dl Lactic Acid (0.4-2.0) mmol/L Calcium 8.2 L (8.4-10.1) mg/dL C-Reactive Protein 12.6 H (0.2-0.8) mg/dL 06/22/20 06/22/20 Range/Units 07:20 07:33 WBC (5.0-10.0) 10^3/uL RBC (4.50-6.00) 10^6/uL Hgb (14.0-18.0) g/dL Hct (40.0-54.0) % MCV (82.0-94.0) fL MCH (27.0-32.0) pg MCHC (33.0-38.0) g/dL RDW Coeff of Laura (11.0-15.0) % Plt Count (150-400) 10^3/uL Neut % (Auto) (35-85) % Lymph % (Auto) (10-55) % [place] % (Auto) (0-16) % Eos % (Auto) (0-5) % Baso % (Auto) (0-3) % Neut # (Auto) (1.80-7.00) 10^3/uL Lymph # (Auto) (1.00-4.80) 10^3/uL [place] # (Auto) (0.00-0.80) 10^3/uL Eos # (Auto) (0.00-0.45) 10^3/uL Baso # (Auto) 10^3/uL D-Dimer, Quantitative (0.00-0.50) Sodium (136-145) mEq/L Potassium (3.5-5.0) mEq/L Chloride (98-106) mEq/L Carbon Dioxide (21-32) mmol/L BUN (7-18) mg/dL Creatinine (0.7-1.3) mg/dL Est Cr Clr Drug Dosing mL/min Estimated GFR (MDRD) (>=60) mL/min Glucose (75-99) mg/dL POC Glucose 77 (75-105) mg/dl Lactic Acid 0.7 (0.4-2.0) mmol/L Calcium (8.4-10.1) mg/dL C-Reactive Protein (0.2-0.8) mg/dL Med Orders - Current: Current Medications Acetaminophen (Tylenol) 650 mg PO Q4H PRN PRN Reason: Pain (Mild 1-3)/fever Last Admin: 06/20/20 04:11 Dose: 650 mg Documented by: Alogliptin Benzoate (Alogliptin) 6.25 mg PO DAILY [facility] Last Admin: 06/22/20 07:37 Dose: 6.25 mg Documented by: Aspirin (Aspirin) 325 mg PO BEDTIME [facility] Last Admin: 06/22/20 19:54 Dose: 325 mg Documented by: Atorvastatin Calcium (Lipitor) 20 mg PO BEDTIME [facility] Last Admin: 06/22/20 19:54 Dose: 20 mg Documented by: Ceftriaxone Sodium (Rocephin) 2 gm IVPUSH DAILY@1999 [facility] Last Admin: 06/22/20 19:47 Dose: 2 gm Documented by: Enoxaparin Sodium (Lovenox) 30 mg SUBCUT BEDTIME [facility] Last Admin: 06/22/20 19:54 Dose: 30 mg Documented by: Folic Acid (Folic Acid) 1 mg PO DAILY [facility] Last Admin: 06/22/20 07:38 Dose: 1 mg Documented by: Clindamycin Phosphate 600 mg/ (Premix) 50 mls @ 100 mls/hr IV Q6H [facility] Last Admin: 06/22/20 19:58 Dose: 100 mls/hr Documented by: Insulin Glargine (Lantus) 38 unit SUBCUT BID [facility] Last Admin: 06/22/20 20:07 Dose: 38 unit Documented by: Lisinopril (Prinivil) 5 mg PO DAILY [facility] Last Admin: 06/22/20 07:39 Dose: 5 mg Documented by: Magnesium Oxide (Magnesium Oxide) 500 mg PO DAILY [facility] Last Admin: 06/22/20 07:38 Dose: 500 mg Documented by: Metoprolol Tartrate (Lopressor) 25 mg PO BID [facility] Last Admin: 06/22/20 19:54 Dose: 25 mg Documented by: Dalfampridine [ (Ampyra] 10mg) 10 mg PO BID [facility] Interferon Beta-1b [ (Betaseron] 1ml) 1 ml SUBCUT Q48H [facility] Nystatin (Nystatin Crm) 0 gm TOP TID [facility] Last Admin: 06/22/20 19:56 Dose: 1 applic Documented by: Discontinued Medications Ceftriaxone Sodium (Rocephin) 1 gm IVPUSH Q24H [facility] Last Admin: 06/19/20 22:54 Dose: 1 gm Documented by: Ceftriaxone Sodium (Rocephin) 1 gm IVPUSH DAILY@1999 [facility] Last Admin: 06/20/20 19:38 Dose: 1 gm Documented by: Dextrose/Sodium Chloride (Dextrose 5%-1/2 Ns) 1,000 mls @ 100 mls/hr IV ASDIRECTED [facility] Last Admin: 06/19/20 22:54 Dose: 100 mls/hr Documented by: Azithromycin 500 mg/ Sodium (Chloride) 250 mls @ 250 mls/hr IV Q24H [facility] Last Admin: 06/19/20 22:54 Dose: 250 mls/hr Documented by: Sodium Chloride (Normal Saline) 1,000 mls @ 50 mls/hr IV ASDIRECTED [facility] Last Admin: 06/21/20 08:19 Dose: 50 mls/hr Documented by: Vancomycin HCl 1.25 gm/ Sodium (Chloride) 250 mls @ 167 mls/hr IV ONETIME ONE Stop: 06/20/20 12:14 Vancomycin HCl 1.25 gm/ Sodium (Chloride) 250 mls @ 167.007 mls/hr IV ONETIME ONE Stop: 06/20/20 12:14 Last Admin: 06/20/20 11:03 Dose: 167.007 mls/hr Documented by: Azithromycin 500 mg/ Sodium (Chloride) 250 mls @ 250 mls/hr IV DAILY@1999 [facility] Last Admin: 06/21/20 19:48 Dose: 250 mls/hr Documented by: Nystatin (Nystatin Crm) Confirm Administered Dose 30 gm .ROUTE .STK-MED ONE Stop: 06/22/20 16:13 Last Admin: 06/22/20 16:22 Dose: Not Given Documented by: Vancomycin HCl (Pharmacy To Dose - Vancomycin) 1 dose .XX ONETIME ONE Stop: 06/20/20 09:46 Vancomycin HCl (Pharmacy To Dose - Vancomycin) 1 dose .XX ASDIRECTED [facility] - Exam General: Alert, Oriented, Cooperative, No Acute Distress Lungs: Clear to Auscultation, Normal Respiratory Effort Cardiovascular: Regular Rate, Regular Rhythm GI/Abdominal Exam: Normal Bowel Sounds, Soft, Non-Tender Extremities: Pedal Edema (1+ Left Lower Extremity) Wound/Incisions: Erythema Improving (Continued swelling and erythema to left lower extremity. Area of erythema has decreased in size. Erythema and warmth is more prominent to left medial ankle) Psy/Mental Status: Alert, Normal Affect, Normal Mood Sepsis Event Note - Evaluation Sepsis Screening Result: No Definite Risk - Focused Exam Vital Signs: Vital Signs Temp Temp Pulse Pulse Resp BP BP 06/22/20 20:00 98.8 F 70 20 158/55 H 06/22/20 19:54 70 158/55 H 06/22/20 16:00 99.5 F 88 20 156/67 H 06/22/20 11:52 97.9 F 66 16 131/56 L Pulse Ox 06/22/20 20:00 97 06/22/20 19:54 06/22/20 16:00 98 06/22/20 11:52 98 - Problem List & Annotations (1) Cellulitis of left anterior lower leg SNOMED Code(s): 836849400 Code(s): L03.116 - CELLULITIS OF LEFT LOWER LIMB Status: Acute Priority: High Current Visit: Yes (2) Bacteremia due to Gram-positive bacteria SNOMED Code(s): 033993235731 Code(s): R78.81 - BACTEREMIA Status: Acute Current Visit: Yes - Problem List Review Problem List Initiated/Reviewed/Updated: Yes - My Orders Last 24 Hours: My Active Orders 06/22/20 08:15 Clindamycin Phosphate in D5W [Cleocin in D5W] 600 mg Premix Bag 1 bag IV Q6H - Assessment Assessment:: Bactermia - Plan Plan:: Shady appears to be doing well today. Laboratory results continue to show elevated WBC, CRP, D-dimer, creatinine. Will slow IV fluids down to 50ml/hr. Will give dose of Vancomycin today as blood cultures are initially positive. Repeat chest x-ray was negative this morning. Will closely monitor. Echocardiogram to be completed today. Patient will be put on telemetry. 06/21/2020 Patient started to develop a cellulitis of the left lower extremity last night. Blood cultures obtained and today show Group B strep. Will d/c Vancomycin and continue with Rocephin 2 gm daily with Azithromycin. Will repeat labs in am. WBC much improved today. CRP is slightly decreased as well. Discussed current plan with Shady and is in agreement. 06/22/2020 Cellulitis has shown improvement since onset. Consulted with Dr. ye, who did evaluate Shady this morning. Will continue to closely monitor. Labs continue to show improvement with normal WBC. CRP has significantly decreased today. Repeat labs in am. Discussed possible discharge tomorrow if continues to show improvement. Patient verbalized understanding.
[2020-06-22] MEDS: Acetaminophen 325 MG Tab PO PRN (23:05)
[2020-06-23] MEDS: Clindamycin Phosphate in D5W 600 MG in Premix Bag 1 BAG IV SCH ×8 (02:16→20:03)
[2020-06-23] MEDS: Metoprolol Tartrate 25 MG Tab PO SCH ×2 (07:52→19:56)
[2020-06-23] MEDS: Folic Acid 1 MG Tab PO SCH (07:52)
[2020-06-23] MEDS: Lisinopril 5 MG Tab PO SCH (07:52)
[2020-06-23] MEDS: Nystatin Crm 30 GM Tube TOP SCH ×3 (07:52→19:53)
[2020-06-23] MEDS: Insulin Glarg,Human.Rec.Analog 100 Unit/ML SUBCUT SCH ×2 (07:58→20:10)
--- NOTE | 2020-06-23 10:57 | PCM.PN ---
- General Info Date of Service: 06/23/20 Admission Dx/Problem (Free Text): Fever unknown etiology Functional Status: Reports: Pain Controlled, Tolerating Diet, Ambulating - Review of Systems General: Reports: Malaise. Denies: Fever, Weakness, Fatigue HEENT: Denies: Ear Pain, Headaches, Sinus Congestion, Rhinitis Pulmonary: Denies: Shortness of Breath, Cough Cardiovascular: Reports: Edema. Denies: Chest Pain, Dyspnea on Exertion Gastrointestinal: Denies: Abdominal Pain, Constipation, Diarrhea, Nausea, Vomiting Genitourinary: Reports: No Symptoms Musculoskeletal: Reports: Leg Pain Skin: Reports: Other (redness, warmth to the leg. Blister to left foot) Neurological: Reports: Weakness - Patient Data Vitals - Most Recent: Last Vital Signs Temp 98.2 F 06/23/20 07:40 Pulse 65 06/23/20 07:52 Resp 18 06/23/20 07:40 BP 131/56 L 06/23/20 07:52 Pulse Ox 95 06/23/20 07:40 Weight - Most Recent: 248 lb I&O - Last 24 Hours: Intake & Output 06/22/20 06/23/20 06/23/20 22:59 06:59 14:59 Intake Total 1250 490 Output Total 800 200 Balance 1250 -310 -200 Lab Results Last 24 Hours: Laboratory Results - last 24 hr 06/22/20 06/22/20 06/22/20 Range/Units 11:39 17:30 20:06 WBC (5.0-10.0) 10^3/uL RBC (4.50-6.00) 10^6/uL Hgb (14.0-18.0) g/dL Hct (40.0-54.0) % MCV (82.0-94.0) fL MCH (27.0-32.0) pg MCHC (33.0-38.0) g/dL RDW Coeff of Laura (11.0-15.0) % Plt Count (150-400) 10^3/uL Neut % (Auto) (35-85) % Lymph % (Auto) (10-55) % [place] % (Auto) (0-16) % Eos % (Auto) (0-5) % Baso % (Auto) (0-3) % Neut # (Auto) (1.80-7.00) 10^3/uL Lymph # (Auto) (1.00-4.80) 10^3/uL [place] # (Auto) (0.00-0.80) 10^3/uL Eos # (Auto) (0.00-0.45) 10^3/uL Baso # (Auto) 10^3/uL Sodium (136-145) mEq/L Potassium (3.5-5.0) mEq/L Chloride (98-106) mEq/L Carbon Dioxide (21-32) mmol/L BUN (7-18) mg/dL Creatinine (0.7-1.3) mg/dL Est Cr Clr Drug Dosing mL/min Estimated GFR (MDRD) (>=60) mL/min Glucose (75-99) mg/dL POC Glucose 112 H 109 H 179 H (75-105) mg/dl Calcium (8.4-10.1) mg/dL C-Reactive Protein (0.2-0.8) mg/dL 06/23/20 06/23/20 06/23/20 Range/Units 06:00 06:00 07:43 WBC 7.4 (5.0-10.0) 10^3/uL RBC 4.20 L (4.50-6.00) 10^6/uL Hgb 12.8 L (14.0-18.0) g/dL Hct 38.5 L (40.0-54.0) % MCV 91.7 (82.0-94.0) fL MCH 30.5 (27.0-32.0) pg MCHC 33.2 (33.0-38.0) g/dL RDW Coeff of Laura 15.3 H (11.0-15.0) % Plt Count 240 (150-400) 10^3/uL Neut % (Auto) 59.7 (35-85) % Lymph % (Auto) 22.4 (10-55) % [place] % (Auto) 10.9 (0-16) % Eos % (Auto) 6.7 H (0-5) % Baso % (Auto) 0.3 (0-3) % Neut # (Auto) 4.42 (1.80-7.00) 10^3/uL Lymph # (Auto) 1.66 (1.00-4.80) 10^3/uL [place] # (Auto) 0.81 H (0.00-0.80) 10^3/uL Eos # (Auto) 0.50 H (0.00-0.45) 10^3/uL Baso # (Auto) 0.02 10^3/uL Sodium 139 (136-145) mEq/L Potassium 4.9 (3.5-5.0) mEq/L Chloride 105 (98-106) mEq/L Carbon Dioxide 26 (21-32) mmol/L BUN 27 H (7-18) mg/dL Creatinine 1.7 H (0.7-1.3) mg/dL Est Cr Clr Drug Dosing 39.96 mL/min Estimated GFR (MDRD) 40 L (>=60) mL/min Glucose 88 (75-99) mg/dL POC Glucose 83 (75-105) mg/dl Calcium 8.7 (8.4-10.1) mg/dL C-Reactive Protein 7.3 H (0.2-0.8) mg/dL Med Orders - Current: Current Medications Acetaminophen (Tylenol) 650 mg PO Q4H PRN PRN Reason: Pain (Mild 1-3)/fever Last Admin: 06/22/20 23:05 Dose: 650 mg Documented by: Alogliptin Benzoate (Alogliptin) 6.25 mg PO DAILY [facility] Last Admin: 06/23/20 07:51 Dose: 6.25 mg Documented by: Aspirin (Aspirin) 325 mg PO BEDTIME [facility] Last Admin: 06/22/20 19:54 Dose: 325 mg Documented by: Atorvastatin Calcium (Lipitor) 20 mg PO BEDTIME [facility] Last Admin: 06/22/20 19:54 Dose: 20 mg Documented by: Ceftriaxone Sodium (Rocephin) 2 gm IVPUSH DAILY@1999 [facility] Last Admin: 06/22/20 19:47 Dose: 2 gm Documented by: Enoxaparin Sodium (Lovenox) 30 mg SUBCUT BEDTIME [facility] Last Admin: 06/22/20 19:54 Dose: 30 mg Documented by: Folic Acid (Folic Acid) 1 mg PO DAILY [facility] Last Admin: 06/23/20 07:52 Dose: 1 mg Documented by: Clindamycin Phosphate 600 mg/ (Premix) 50 mls @ 100 mls/hr IV Q6H [facility] Last Admin: 06/23/20 07:53 Dose: 100 mls/hr Documented by: Insulin Glargine (Lantus) 38 unit SUBCUT BID [facility] Last Admin: 06/23/20 07:58 Dose: 38 unit Documented by: Lisinopril (Prinivil) 5 mg PO DAILY [facility] Last Admin: 06/23/20 07:52 Dose: 5 mg Documented by: Magnesium Oxide (Magnesium Oxide) 500 mg PO DAILY [facility] Last Admin: 06/23/20 07:51 Dose: 500 mg Documented by: Metoprolol Tartrate (Lopressor) 25 mg PO BID [facility] Last Admin: 06/23/20 07:52 Dose: 25 mg Documented by: Dalfampridine [ (Ampyra] 10mg) 10 mg PO BID [facility] Interferon Beta-1b [ (Betaseron] 1ml) 1 ml SUBCUT Q48H [facility] Nystatin (Nystatin Crm) 0 gm TOP TID [facility] Last Admin: 06/23/20 07:52 Dose: 1 applic Documented by: Discontinued Medications Ceftriaxone Sodium (Rocephin) 1 gm IVPUSH Q24H [facility] Last Admin: 06/19/20 22:54 Dose: 1 gm Documented by: Ceftriaxone Sodium (Rocephin) 1 gm IVPUSH DAILY@1999 [facility] Last Admin: 06/20/20 19:38 Dose: 1 gm Documented by: Dextrose/Sodium Chloride (Dextrose 5%-1/2 Ns) 1,000 mls @ 100 mls/hr IV ASDIRECTED [facility] Last Admin: 06/19/20 22:54 Dose: 100 mls/hr Documented by: Azithromycin 500 mg/ Sodium (Chloride) 250 mls @ 250 mls/hr IV Q24H [facility] Last Admin: 06/19/20 22:54 Dose: 250 mls/hr Documented by: Sodium Chloride (Normal Saline) 1,000 mls @ 50 mls/hr IV ASDIRECTED [facility] Last Admin: 06/21/20 08:19 Dose: 50 mls/hr Documented by: Vancomycin HCl 1.25 gm/ Sodium (Chloride) 250 mls @ 167 mls/hr IV ONETIME ONE Stop: 06/20/20 12:14 Vancomycin HCl 1.25 gm/ Sodium (Chloride) 250 mls @ 167.007 mls/hr IV ONETIME ONE Stop: 06/20/20 12:14 Last Admin: 06/20/20 11:03 Dose: 167.007 mls/hr Documented by: Azithromycin 500 mg/ Sodium (Chloride) 250 mls @ 250 mls/hr IV DAILY@1999 [facility] Last Admin: 06/21/20 19:48 Dose: 250 mls/hr Documented by: Nystatin (Nystatin Crm) Confirm Administered Dose 30 gm .ROUTE .STK-MED ONE Stop: 06/22/20 16:13 Last Admin: 06/22/20 16:22 Dose: Not Given Documented by: Vancomycin HCl (Pharmacy To Dose - Vancomycin) 1 dose .XX ONETIME ONE Stop: 06/20/20 09:46 Vancomycin HCl (Pharmacy To Dose - Vancomycin) 1 dose .XX ASDIRECTED [facility] - Exam General: Alert, Oriented HEENT: Mucous Membr. Moist/[place] Neck: Supple Lungs: Clear to Auscultation, Normal Respiratory Effort Cardiovascular: Regular Rate, Regular Rhythm GI/Abdominal Exam: Normal Bowel Sounds, Soft, Non-Tender Extremities: Pedal Edema, Increased Warmth, Other (Left leg is red and warm. Improved in comparison to skin markings. Has large blister to left medial ankle. ) Skin: Warm, Dry Wound/Incisions: Erythema Improving Neurological: No New Focal Deficit Sepsis Event Note - Evaluation Sepsis Screening Result: No Definite Risk - Focused Exam Vital Signs: Vital Signs Temp Pulse Pulse Resp BP BP Pulse Ox 06/23/20 07:52 65 131/56 L 06/23/20 07:40 98.2 F 65 18 131/56 L 95 06/23/20 02:54 98.3 F 66 16 127/54 L 97 06/22/20 23:30 98.4 F 06/22/20 23:00 99.3 F 65 20 118/46 L 96 - Problem List & Annotations (1) Cellulitis of left anterior lower leg SNOMED Code(s): 853938275 Code(s): L03.116 - CELLULITIS OF LEFT LOWER LIMB Status: Acute Priority: High Current Visit: Yes (2) Bacteremia due to Gram-positive bacteria SNOMED Code(s): 865002827199 Code(s): R78.81 - BACTEREMIA Status: Acute Priority: High Current Visit: Yes - Problem List Review Problem List Initiated/Reviewed/Updated: Yes - Assessment Assessment:: Bactermia - Plan Plan:: Shady appears to be doing well today. Laboratory results continue to show elevated WBC, CRP, D-dimer, creatinine. Will slow IV fluids down to 50ml/hr. Will give dose of Vancomycin today as blood cultures are initially positive. Repeat chest x-ray was negative this morning. Will closely monitor. Echocardiogram to be completed today. Patient will be put on telemetry. 06/21/2020 Patient started to develop a cellulitis of the left lower extremity last night. Blood cultures obtained and today show Group B strep. Will d/c Vancomycin and continue with Rocephin 2 gm daily with Azithromycin. Will repeat labs in am. WBC much improved today. CRP is slightly decreased as well. Discussed current plan with Shady and is in agreement. 06/22/2020 Cellulitis has shown improvement since onset. Consulted with Dr. ye, who did evaluate Shady this morning. Will continue to closely monitor. Labs continue to show improvement with normal WBC. CRP has significantly decreased today. Repeat labs in am. Discussed possible discharge tomorrow if continues to show improvement. Patient verbalized understanding. 06-23-2020 Patient is feeling good this am. Admits that leg is feeling less painful. Has developed a large blister to medial ankle region. Tender to the touch. Redness has improved by skin markings. Was switched to IV Cleocin yesterday. WBC is stable at 7.4. CRP has improved down to 7.3. Continue IV fluids. Ambulate. Likely discharge home tomorrow.
[2020-06-23] MEDS: Aspirin 325 MG Tab PO SCH (19:56)
[2020-06-23] MEDS: atorvaSTATin 20 MG Tab PO SCH (19:56)
[2020-06-23] MEDS: Enoxaparin 30 MG/0.3 ML Syringe SUBCUT SCH (19:57)
[2020-06-23] MEDS: cefTRIAXone 2 GM Vial IVPUSH SCH (19:58)
[2020-06-23] MEDS: Acetaminophen 325 MG Tab PO PRN (22:08)
[2020-06-24] MEDS: Clindamycin Phosphate in D5W 600 MG in Premix Bag 1 BAG IV SCH ×6 (02:02→13:15)
[2020-06-24] MEDS: Lisinopril 5 MG Tab PO SCH (07:36)
[2020-06-24] MEDS: Metoprolol Tartrate 25 MG Tab PO SCH (07:36)
[2020-06-24] MEDS: Folic Acid 1 MG Tab PO SCH (07:37)
[2020-06-24] MEDS: Insulin Glarg,Human.Rec.Analog 100 Unit/ML SUBCUT SCH (07:40)
[2020-06-24] MEDS: Nystatin Crm 30 GM Tube TOP SCH ×2 (07:47→13:47)
--- NOTE | 2020-06-24 13:06 | PCM.DCSUM1 ---
Discharge Summary - Hospital Course Free Text/Narrative:: Shady is a 75 year old male who presented to ER with shaking, chills and fevers. Had not felt better with ibuprofen. No real other discernible symptoms. No pain, no cough. Had one episode of vomiting but no further nausea or vomiting or diarrhea on presentation to ER. No urinary complaints. No shortness of breath. Had felt weak but felt related to the fever which exacerbates his MS. Otherwise no other neuro changes. WBC 13.6, sodium 134. Potassium 5.1. Creatinine 2.5. Lactic 0.9. Admitted for fever of unknown origin. . Diagnosis: Stroke: No - Discharge Data Discharge Date: 06/24/20 Discharge Disposition: Home, Self-Care 01 Condition: Good - Referral to Home Health Primary Care Physician: Paul Pelayo MD - Discharge Diagnosis/Problem(s) (1) Cellulitis of left anterior lower leg SNOMED Code(s): 591657875 ICD Code: L03.116 - CELLULITIS OF LEFT LOWER LIMB Status: Acute Priority: High Current Visit: Yes (2) Bacteremia due to Gram-positive bacteria SNOMED Code(s): 457356694747 ICD Code: R78.81 - BACTEREMIA Status: Acute Priority: High Current Visit: Yes - Patient Summary/Data Complications: none Consults: Consultations 06/20/20 20:37 Consult to Physical Therapy [PT Evaluation and Treatment] [CONS] Routine Hospital Course: Patient is doing well now. Is now afebrile. Approximately 24 hours after admission, did develop redness and swelling in his left leg which progressed to having a large blister to the medial malleolar region. Labs have improved. WBC is now normal. CRP did peak to 24.5 and has improved now today to 5. Creatinine has much improved to 1.6. Blood cultures were positive with strep Agalactiae B, covered with Clindamycin. Switched to that from Rocephin and Zithromax on and has had good improvement of the redness of his leg as well as the swelling and warmth. Does continue to ooze from the blister, culture was obtained from wound and is pending. Will discharge home on Clindamycin QID. Follow up with Dr. Pelayo in a week. - Patient Instructions Diet: Diabetic Diet Activity: As Tolerated - Discharge Plan *PRESCRIPTION DRUG MONITORING PROGRAM REVIEWED*: Not Applicable *COPY OF PRESCRIPTION DRUG MONITORING REPORT IN PATIENT ROEL: Not Applicable Prescriptions/Med Rec: clindamycin HCL [Cleocin] 300 mg PO Q6H #40 cap Home Medications: Home Meds Aspirin 325 mg PO BEDTIME 06/22/14 [History] Cholecalciferol (Vitamin D3) [Vitamin D3] 5,000 mg PO DAILY 06/22/14 [History] Dalfampridine [Ampyra] 10 mg PO Q12HR 06/22/14 [History] Insulin Detemir [Levemir] 38 unit SQ BID 06/22/14 [History] Lisinopril 5 mg PO DAILY 06/22/14 [History] Naproxen Sodium [Aleve] 440 mg PO DAILY 06/22/14 [History] atorvaSTATin [Lipitor] 20 mg PO BEDTIME 06/22/14 [History] Interferon Beta-1b [Betaseron] 1 ml SUBCUT Q48H 12/04/17 [History] Magnesium 500 mg PO DAILY 12/04/17 [History] Metoprolol Tartrate 25 mg PO BID 12/04/17 [History] Testosterone Cypionate 200 mg IM Q30D 12/04/17 [History] Folic Acid 1 mg PO DAILY 06/19/20 [History] SitaGLIPtin [Januvia] 100 mg PO DAILY 06/19/20 [History] clindamycin HCL [Cleocin] 300 mg PO Q6H #40 cap 06/24/20 [Rx] Patient Handouts: Cellulitis, Adult Forms: ED Department Discharge Referrals: Paul Pelayo MD [Primary Care Provider] - (Follow up with Dr. Pelayo in one week) - Discharge Summary/Plan Comment DC Time >30 min.: No - General Info Date of Service: 06/24/20 Admission Dx/Problem (Free Text: Fever unknown etiology Functional Status: Reports: Pain Controlled, Tolerating Diet, Ambulating - Review of Systems General: Denies: Fever, Weakness, Fatigue, Malaise HEENT: Reports: No Symptoms Pulmonary: Denies: Shortness of Breath, Cough Cardiovascular: Reports: Edema. Denies: Chest Pain, Lightheadedness Gastrointestinal: Denies: Abdominal Pain, Nausea, Vomiting Genitourinary: Reports: No Symptoms Musculoskeletal: Reports: Leg Pain Skin: Reports: Other (redness to left leg ) Neurological: Reports: Weakness (chronic related to his MS) - Patient Data Vitals - Most Recent: Last Vital Signs Temp 97.8 F 06/24/20 07:29 Pulse 63 06/24/20 07:36 Resp 18 06/24/20 07:29 BP 133/56 L 06/24/20 07:36 Pulse Ox 96 06/24/20 07:29 Weight - Most Recent: 248 lb I&O - Last 24 hours: Intake & Output 06/23/20 06/24/20 06/24/20 22:59 06:59 14:59 Intake Total 50 50 Balance 50 50 Lab Results - Last 24 hrs: Laboratory Results - last 24 hr 06/23/20 06/23/20 06/23/20 Range/Units 11:32 17:57 20:06 WBC (5.0-10.0) 10^3/uL RBC (4.50-6.00) 10^6/uL Hgb (14.0-18.0) g/dL Hct (40.0-54.0) % MCV (82.0-94.0) fL MCH (27.0-32.0) pg MCHC (33.0-38.0) g/dL RDW Coeff of Laura (11.0-15.0) % Plt Count (150-400) 10^3/uL Neut % (Auto) (35-85) % Lymph % (Auto) (10-55) % [place] % (Auto) (0-16) % Eos % (Auto) (0-5) % Baso % (Auto) (0-3) % Neut # (Auto) (1.80-7.00) 10^3/uL Lymph # (Auto) (1.00-4.80) 10^3/uL [place] # (Auto) (0.00-0.80) 10^3/uL Eos # (Auto) (0.00-0.45) 10^3/uL Baso # (Auto) 10^3/uL Sodium (136-145) mEq/L Potassium (3.5-5.0) mEq/L Chloride (98-106) mEq/L Carbon Dioxide (21-32) mmol/L BUN (7-18) mg/dL Creatinine (0.7-1.3) mg/dL Est Cr Clr Drug Dosing mL/min Estimated GFR (MDRD) (>=60) mL/min Glucose (75-99) mg/dL POC Glucose 94 146 H 205 H (75-105) mg/dl Calcium (8.4-10.1) mg/dL C-Reactive Protein (0.2-0.8) mg/dL 06/24/20 06/24/20 06/24/20 Range/Units 06:00 06:00 07:32 WBC 8.5 (5.0-10.0) 10^3/uL RBC 4.21 L (4.50-6.00) 10^6/uL Hgb 12.9 L (14.0-18.0) g/dL Hct 38.0 L (40.0-54.0) % MCV 90.3 (82.0-94.0) fL MCH 30.6 (27.0-32.0) pg MCHC 33.9 (33.0-38.0) g/dL RDW Coeff of Laura 15.0 (11.0-15.0) % Plt Count 284 (150-400) 10^3/uL Neut % (Auto) 59.8 (35-85) % Lymph % (Auto) 21.8 (10-55) % [place] % (Auto) 11.5 (0-16) % Eos % (Auto) 6.7 H (0-5) % Baso % (Auto) 0.2 (0-3) % Neut # (Auto) 5.09 (1.80-7.00) 10^3/uL Lymph # (Auto) 1.86 (1.00-4.80) 10^3/uL [place] # (Auto) 0.98 H (0.00-0.80) 10^3/uL Eos # (Auto) 0.57 H (0.00-0.45) 10^3/uL Baso # (Auto) 0.02 10^3/uL Sodium 137 (136-145) mEq/L Potassium 4.7 (3.5-5.0) mEq/L Chloride 104 (98-106) mEq/L Carbon Dioxide 25 (21-32) mmol/L BUN 25 H (7-18) mg/dL Creatinine 1.6 H (0.7-1.3) mg/dL Est Cr Clr Drug Dosing 42.46 mL/min Estimated GFR (MDRD) 43 L (>=60) mL/min Glucose 72 L (75-99) mg/dL POC Glucose 68 L (75-105) mg/dl Calcium 8.9 (8.4-10.1) mg/dL C-Reactive Protein 5.0 H (0.2-0.8) mg/dL DARRYL Results - Last 24 hrs: Microbiology 06/23/20 16:17 Wound Culture - Preliminary Ankle, Left NO GROWTH AFTER 1 DAY Med Orders - Current: Current Medications Acetaminophen (Tylenol) 650 mg PO Q4H PRN PRN Reason: Pain (Mild 1-3)/fever Last Admin: 06/23/20 22:08 Dose: 650 mg Documented by: Alogliptin Benzoate (Alogliptin) 6.25 mg PO DAILY [facility] Last Admin: 06/24/20 07:35 Dose: 6.25 mg Documented by: Aspirin (Aspirin) 325 mg PO BEDTIME [facility] Last Admin: 06/23/20 19:56 Dose: 325 mg Documented by: Atorvastatin Calcium (Lipitor) 20 mg PO BEDTIME [facility] Last Admin: 06/23/20 19:56 Dose: 20 mg Documented by: Ceftriaxone Sodium (Rocephin) 2 gm IVPUSH DAILY@1999 [facility] Last Admin: 06/23/20 19:58 Dose: 2 gm Documented by: Enoxaparin Sodium (Lovenox) 30 mg SUBCUT BEDTIME [facility] Last Admin: 06/23/20 19:57 Dose: 30 mg Documented by: Folic Acid (Folic Acid) 1 mg PO DAILY [facility] Last Admin: 06/24/20 07:37 Dose: 1 mg Documented by: Clindamycin Phosphate 600 mg/ (Premix) 50 mls @ 100 mls/hr IV Q6H [facility] Last Admin: 06/24/20 07:37 Dose: 100 mls/hr Documented by: Insulin Glargine (Lantus) 38 unit SUBCUT BID [facility] Last Admin: 06/24/20 07:40 Dose: 38 unit Documented by: Lisinopril (Prinivil) 5 mg PO DAILY [facility] Last Admin: 06/24/20 07:36 Dose: 5 mg Documented by: Magnesium Oxide (Magnesium Oxide) 500 mg PO DAILY [facility] Last Admin: 06/24/20 07:36 Dose: 500 mg Documented by: Metoprolol Tartrate (Lopressor) 25 mg PO BID [facility] Last Admin: 06/24/20 07:36 Dose: 25 mg Documented by: Dalfampridine [ (Ampyra] 10mg) 10 mg PO BID [facility] Interferon Beta-1b [ (Betaseron] 1ml) 1 ml SUBCUT Q48H [facility] Nystatin (Nystatin Crm) 0 gm TOP TID [facility] Last Admin: 06/24/20 07:47 Dose: Not Given Documented by: Discontinued Medications Ceftriaxone Sodium (Rocephin) 1 gm IVPUSH Q24H [facility] Last Admin: 06/19/20 22:54 Dose: 1 gm Documented by: Ceftriaxone Sodium (Rocephin) 1 gm IVPUSH DAILY@1999 [facility] Last Admin: 06/20/20 19:38 Dose: 1 gm Documented by: Dextrose/Sodium Chloride (Dextrose 5%-1/2 Ns) 1,000 mls @ 100 mls/hr IV ASDIRECTED [facility] Last Admin: 06/19/20 22:54 Dose: 100 mls/hr Documented by: Azithromycin 500 mg/ Sodium (Chloride) 250 mls @ 250 mls/hr IV Q24H [facility] Last Admin: 06/19/20 22:54 Dose: 250 mls/hr Documented by: Sodium Chloride (Normal Saline) 1,000 mls @ 50 mls/hr IV ASDIRECTED [facility] Last Admin: 06/21/20 08:19 Dose: 50 mls/hr Documented by: Vancomycin HCl 1.25 gm/ Sodium (Chloride) 250 mls @ 167 mls/hr IV ONETIME ONE Stop: 06/20/20 12:14 Vancomycin HCl 1.25 gm/ Sodium (Chloride) 250 mls @ 167.007 mls/hr IV ONETIME ONE Stop: 06/20/20 12:14 Last Admin: 06/20/20 11:03 Dose: 167.007 mls/hr Documented by: Azithromycin 500 mg/ Sodium (Chloride) 250 mls @ 250 mls/hr IV DAILY@1999 [facility] Last Admin: 06/21/20 19:48 Dose: 250 mls/hr Documented by: Nystatin (Nystatin Crm) Confirm Administered Dose 30 gm .ROUTE .STK-MED ONE Stop: 06/22/20 16:13 Last Admin: 06/22/20 16:22 Dose: Not Given Documented by: Vancomycin HCl (Pharmacy To Dose - Vancomycin) 1 dose .XX ONETIME ONE Stop: 12/29/20 09:46 Vancomycin HCl (Pharmacy To Dose - Vancomycin) 1 dose .XX ASDIRECTED CRISTINA - Exam General: Reports: Alert, Oriented HEENT: Reports: Mucous Membr. Moist/[place] Neck: Reports: Supple Lungs: Reports: Clear to Auscultation, Normal Respiratory Effort Cardiovascular: Reports: Regular Rate, Regular Rhythm GI/Abdominal Exam: Normal Bowel Sounds, Soft, Non-Tender Extremities: Increased Warmth, Redness Wound/Incisions: Reports: Drainage (blister opened and wound is oozing serous fluid), Erythema Improving Neurological: Reports: No New Focal Deficit
== END 2020-06-24 14:00 | disposition home or self-care (01) | DRG 872 ==
LOC: CC.ED 19:29 → UNDOADMIN 21:00 → CC.MS 21:00
PROVIDERS: ADMIT Physician Assistant Medical; ATTEND Family Medicine
DX: A40.1 Sepsis due to streptococcus, group B (principal); L03.116 Cellulitis of left lower limb; N17.9 Acute kidney failure, unspecified; R50.9 Fever, unspecified; E78.00 Pure hypercholesterolemia, unspecified; I10 Essential (primary) hypertension; G35 Multiple sclerosis; E11.9 Type 2 diabetes mellitus without complications; B95.1 Streptococcus, group B, as the cause of diseases classified elsewhere; Z88.1 Allergy status to other antibiotic agents; Z88.2 Allergy status to sulfonamides; Z79.4 Long term (current) use of insulin; Z95.1 Presence of aortocoronary bypass graft; Z79.82 Long term (current) use of aspirin; Z20.828 Contact with and (suspected) exposure to other viral communicable diseases; Z79.899 Other long term (current) drug therapy
CPT/HCPCS: 36415; 71045; 71046; 80048; 80053; 81001; 82550; 82962; 83605; 83880; 84484; 85025; 85379; 85610; 86140; 87040; 87070; 87077; 93005; 93010; 93306; 97110-GP; 97161-GP; 99285-25; A9270-GY; J0456; J0696; J1650; J1815-GY; J3370; J3490; J7030; J7042; J7050; U0002

== ENCOUNTER 2020-08-06 12:28 | Inpatient (IN) | payer MEDICARE, BC ==
--- NOTE | 2020-08-06 12:40 | EDM.PDOC ---
ED HPI GENERAL MEDICAL PROBLEM - General Chief Complaint: Skin Complaint Stated Complaint: L)hip redness Time Seen by Provider: 08/06/20 12:31 Source of Information: Reports: Patient History Limitations: Reports: No Limitations - History of Present Illness INITIAL COMMENTS - FREE TEXT/NARRATIVE: This patient is a 75 year old male that presents to the ER. Patient reports he gave himself injection to the left hip friday night for his MS. Patient reports then on having redness itching to the left hip thigh area. Patient reports he started having a fever today at home 101. Patient reports taking Tylenol. RN reports the daughter said he had redness , then on Friday/Friday the redness was smaller. Then, today the redness was larger. Onset Date: 08/03/20 Duration: Day(s): (3) Location: Reports: Lower Extremity, Left Quality: Reports: Dull Severity: Mild Improves with: Reports: None Worsens with: Reports: None Associated Symptoms: Reports: Cough, Fever/Chills, Other (redness left hip). Denies: Confusion, Chest Pain, cough w sputum, Diaphoresis, Headaches, Loss of Appetite, Malaise, Nausea/Vomiting, Rash, Seizure, Shortness of Breath, Syncope, Weakness Treatments [employer]: Reports: Acetaminophen - Related Data Allergies Allergy/AdvReac Type Severity Reaction Status Date / Time cefuroxime Allergy Shortness Verified 08/06/20 12:29 of Breath Sulfa (Sulfonamide Allergy Hives Verified 08/06/20 12:29 Antibiotics) Home Meds: Home Meds Aspirin 325 mg PO BEDTIME 06/22/14 [History] Cholecalciferol (Vitamin D3) [Vitamin D3] 5,000 mg PO DAILY 06/22/14 [History] Dalfampridine [Ampyra] 10 mg PO Q12HR 06/22/14 [History] Insulin Detemir [Levemir] 38 unit SQ BID 06/22/14 [History] Lisinopril 5 mg PO DAILY 06/22/14 [History] Naproxen Sodium [Aleve] 440 mg PO DAILY 06/22/14 [History] atorvaSTATin [Lipitor] 20 mg PO BEDTIME 06/22/14 [History] Interferon Beta-1b [Betaseron] 1 ml SUBCUT Q48H 12/04/17 [History] Magnesium 500 mg PO DAILY 12/04/17 [History] Metoprolol Tartrate 25 mg PO BID 12/04/17 [History] Testosterone Cypionate 200 mg IM Q30D 12/04/17 [History] Folic Acid 1 mg PO DAILY 06/19/20 [History] SitaGLIPtin [Januvia] 100 mg PO DAILY 06/19/20 [History] Past Medical History Cardiovascular History: Reports: High Cholesterol, Hypertension Musculoskeletal History: Reports: Other (See Below) Other Musculoskeletal History: MS Neurological History: Reports: MS Endocrine/Metabolic History: Reports: Diabetes, Type II - Past Surgical History Cardiovascular Surgical History: Reports: Coronary Artery Bypass Social & Family History - Family History Family Medical History: No Pertinent Family History - Living Situation & Occupation Living situation: Reports: , with Spouse Occupation: Retired ED ROS GENERAL - Review of Systems Review Of Systems: See Below Constitutional: Reports: Fever, Chills. Denies: Malaise, Weakness, Fatigue, Diaphoresis, Decreased Appetite HEENT: Reports: No Symptoms Respiratory: Reports: Cough. Denies: Shortness of Breath, Wheezing, Pleuritic Chest Pain, Sputum, Hemoptysis Cardiovascular: Reports: No Symptoms. Denies: Chest Pain, Dyspnea on Exertion, Edema, Lightheadedness, Palpitations, Syncope Endocrine: Reports: No Symptoms GI/Abdominal: Reports: No Symptoms. Denies: Abdominal Pain, Diarrhea, Nausea, Vomiting : Reports: No Symptoms Musculoskeletal: Denies: Leg Pain, Joint Pain, Joint Swelling Skin: Reports: Erythema (left lateral/anterior erythema. mild swelling. Pain, tenderness. Skin level, joint involvement on exam. ROM intact his baseline hx MS. Not circumferential. ) Neurological: Reports: No Symptoms Psychiatric: Reports: No Symptoms Hematologic/Lymphatic: Reports: No Symptoms Immunologic: Reports: No Symptoms ED EXAM, SKIN/RASH Exam: See Below Exam Limited By: No Limitations General Appearance: Alert, WD/WN, No Apparent Distress Eye Exam: Bilateral Eye: Normal Inspection, PERRL Ears: Normal External Exam, Normal Canal, Hearing Grossly Normal, Normal TMs Nose: Normal Inspection, Normal Mucosa, No Blood Throat/Mouth: Normal Inspection, Normal Lips, Normal Teeth, Normal Gums, Normal Oropharynx, Normal Voice, No Airway Compromise Head: Atraumatic, Normocephalic Neck: Normal Inspection, Supple, Non-Tender, Full Range of Motion Respiratory/Chest: No Respiratory Distress, Lungs Clear, Normal Breath Sounds, No Accessory Muscle Use Cardiovascular: Normal Peripheral Pulses, Regular Rate, Rhythm, No Edema, No Gallop, No JVD, No Murmur, No Rub Peripheral Pulses: 2+: Radial (L), Radial (R), Posterior Tibial (L), Posterior Tibial (R) GI/Abdominal: Soft, Non-Tender Back Exam: Normal Inspection, Full Range of Motion. No: CVA Tenderness (L), CVA Tenderness (R) Extremities: Normal Range of Motion, No Pedal Edema, Normal Capillary Refill, Increased Warmth (left lateral/anterior thigh.), Redness (left lateral/anterior thigh. Marked with marker. No joint involvement. ). No: Limited Range of Motion Neurological: Alert, Oriented Psychiatric: Normal Affect, Normal Mood Skin: Warm, Dry, Intact, No Rash, Erythema (left lateral/anterior erythema, heat. Mild swelling. No fluctulance or abcess. No groin involvement.) Location, Skin: Lower Extremity, Left Characteristics: Erythematous Associated features: Warmth, Tenderness, Swelling. No: Induration, Crusting, Weeping Lymphatic: No Adenopathy Course - Vital Signs Last Recorded V/S: Last Vital Signs Temp 99.3 F 08/06/20 12:34 Pulse 81 08/06/20 12:34 Resp 18 08/06/20 12:34 BP 149/57 H 08/06/20 12:34 Pulse Ox 99 08/06/20 12:34 - Orders/Labs/Meds Orders: Active Orders 24 hr Category Date Time Status Hip Min 2V or 3V w Pelvis Lt [CR] Stat Exams 08/06/20 12:38 Taken CULTURE BLOOD [BC] Stat Lab 08/06/20 12:58 Received CULTURE BLOOD [BC] Stat Lab 08/06/20 12:58 Received Blood Culture x2 Reflex Set [OM.PC] Stat Oth 08/06/20 12:38 Ordered Labs: Laboratory Tests 08/06/20 08/06/20 08/06/20 Range/Units 12:58 12:58 12:58 WBC 18.4 H (5.0-10.0) 10^3/uL RBC 4.41 L (4.50-6.00) 10^6/uL Hgb 13.7 L (14.0-18.0) g/dL Hct 39.8 L (40.0-54.0) % MCV 90.2 (82.0-94.0) fL MCH 31.1 (27.0-32.0) pg MCHC 34.4 (33.0-38.0) g/dL RDW Coeff of Laura 14.9 (11.0-15.0) % Plt Count 223 (150-400) 10^3/uL Add Manual Diff Yes Neutrophils % (Manual) 85 (35-85) % Lymphocytes % (Manual) 9 L (21-55) % Monocytes % (Manual) 6 (2-12) % Sodium 138 (136-145) mEq/L Potassium 4.4 (3.5-5.0) mEq/L Chloride 101 (98-106) mEq/L Carbon Dioxide 25 (21-32) mmol/L BUN 54 H D (7-18) mg/dL Creatinine 2.4 H (0.7-1.3) mg/dL Est Cr Clr Drug Dosing 29.20 mL/min Estimated GFR (MDRD) 27 L (>=60) mL/min Glucose 123 H D (75-99) mg/dL Lactic Acid 1.9 (0.4-2.0) mmol/L Calcium 9.3 (8.4-10.1) mg/dL Total Bilirubin 0.6 (0.0-1.0) mg/dL AST 16 (15-37) U/L ALT 24 (12-78) U/L Alkaline Phosphatase 83 (46-116) U/L C-Reactive Protein 32.7 H (0.2-0.8) mg/dL Total Protein 8.2 (6.4-8.2) g/dL Albumin 3.1 L (3.4-5.0) g/dL SARS CoV-2 RNA Rapid QAMAR (NEGATIVE) 08/06/20 Range/Units 12:58 WBC (5.0-10.0) 10^3/uL RBC (4.50-6.00) 10^6/uL Hgb (14.0-18.0) g/dL Hct (40.0-54.0) % MCV (82.0-94.0) fL MCH (27.0-32.0) pg MCHC (33.0-38.0) g/dL RDW Coeff of Laura (11.0-15.0) % Plt Count (150-400) 10^3/uL Add Manual Diff Neutrophils % (Manual) (35-85) % Lymphocytes % (Manual) (21-55) % Monocytes % (Manual) (2-12) % Sodium (136-145) mEq/L Potassium (3.5-5.0) mEq/L Chloride (98-106) mEq/L Carbon Dioxide (21-32) mmol/L BUN (7-18) mg/dL Creatinine (0.7-1.3) mg/dL Est Cr Clr Drug Dosing mL/min Estimated GFR (MDRD) (>=60) mL/min Glucose (75-99) mg/dL Lactic Acid (0.4-2.0) mmol/L Calcium (8.4-10.1) mg/dL Total Bilirubin (0.0-1.0) mg/dL AST (15-37) U/L ALT (12-78) U/L Alkaline Phosphatase (46-116) U/L C-Reactive Protein (0.2-0.8) mg/dL Total Protein (6.4-8.2) g/dL Albumin (3.4-5.0) g/dL SARS CoV-2 RNA Rapid QAMAR Negative (NEGATIVE) - Radiology Interpretation Free Text/Narrative:: Left hip xray: no fracture, osteoarthritis, but no acute abnormalities. Departure - Departure Time of Disposition: 15:07 Disposition: Refer to Observation Condition: Good Clinical Impression: Renal insufficiency Cellulitis Qualifiers: Site of cellulitis: extremity Site of cellulitis of extremity: lower extremity Laterality: left Qualified Code(s): L03.116 - Cellulitis of left lower limb Fever Qualifiers: Fever type: unspecified Qualified Code(s): R50.9 - Fever, unspecified Leukocytosis Qualifiers: Leukocytosis type: unspecified Qualified Code(s): D72.829 - Elevated white blo od cell count, unspecified - Discharge Information *PRESCRIPTION DRUG MONITORING PROGRAM REVIEWED*: Not Applicable *COPY OF PRESCRIPTION DRUG MONITORING REPORT IN PATIENT ROEL: Not Applicable Forms: ED Department Discharge Sepsis Event Note (ED) - Evaluation Sepsis Screening Result: No Definite Risk - Focused Exam Vital Signs: Vital Signs Temp Pulse Resp BP Pulse Ox 08/06/20 12:34 99.3 F 81 18 149/57 H 99 - My Orders Last 24 Hours: My Active Orders 08/06/20 12:38 Hip Min 2V or 3V w Pelvis Lt [CR] Stat Blood Culture x2 Reflex Set [OM.PC] Stat 08/06/20 12:58 CULTURE BLOOD [BC] Stat CULTURE BLOOD [BC] Stat - Assessment/Plan Last 24 Hours: My Active Orders 08/06/20 12:38 Hip Min 2V or 3V w Pelvis Lt [CR] Stat Blood Culture x2 Reflex Set [OM.PC] Stat 08/06/20 12:58 CULTURE BLOOD [BC] Stat CULTURE BLOOD [BC] Stat Plan: PLEASE SEE RN NOTE FOR PFSH. PLEASE USE ADMIT H&P ADMIT H&P
[2020-08-06] MEDS ORDERED: Enoxaparin 30 MG/0.3 ML Syringe SUBCUT SCH (16:15)
[2020-08-06] MEDS ORDERED: Morphine 2 MG/ML SYRINGE IVPUSH PRN (16:15)
[2020-08-06] MEDS ORDERED: INTERFERON BETA 1B SUBCUT SCH (16:15)
[2020-08-06] MEDS ORDERED: Sodium Chloride 0.9% 1,000 ML IV SCH (16:15)
[2020-08-06] MEDS ORDERED: Ondansetron 4 MG/2 ML SDV IV PRN (16:15)
[2020-08-06] MEDS: Ibuprofen 200 MG Tab PO PRN (16:42)
[2020-08-06] MEDS: Clindamycin Phosphate in D5W 600 MG in Premix Bag 1 BAG IV SCH ×4 (16:44→23:48)
[2020-08-06] MEDS: Acetaminophen 325 MG Tab PO PRN ×2 (17:40→23:54)
[2020-08-06] MEDS: Aspirin 325 MG Tab.EC PO SCH (19:51)
[2020-08-06] MEDS: Insulin Glarg,Human.Rec.Analog 100 Unit/ML SUBCUT SCH (19:52)
[2020-08-06] MEDS ORDERED: Metoprolol Tartrate 25 MG Tab PO ONE (20:00)
[2020-08-07] MEDS ORDERED: Sodium Chloride 0.9% 1,000 ML IV SCH (00:14)
[2020-08-07] MEDS: Ibuprofen 200 MG Tab PO PRN (07:40)
[2020-08-07] MEDS: Clindamycin Phosphate in D5W 600 MG in Premix Bag 1 BAG IV SCH ×6 (07:41→23:15)
[2020-08-07] MEDS: Cholecalciferol (Vitamin D3) 25 MCG Tab PO SCH (07:41)
[2020-08-07] MEDS: Insulin Glarg,Human.Rec.Analog 100 Unit/ML SUBCUT SCH ×2 (07:43→20:16)
[2020-08-07] MEDS ORDERED: Non-Formulary Medication 1 Each (Lisinopril [Lisinopril] 5 MG) PO SCH (08:00)
[2020-08-07] MEDS ORDERED: NAPROXEN SODIUM 440 MG PO SCH (08:00)
--- NOTE | 2020-08-07 09:20 | PCM.PN ---
- General Info Date of Service: 08/07/20 Admission Dx/Problem (Free Text): Left Leg Cellulitis Renal Insufficiency Subjective Update: Shady is a pleasant 75 year old male who was admitted to the hospital yesterday for left thigh cellulitis, renal insufficiency, and concerns for possible sepsi s. He reports he is feeling better this morning. Has not had high temperatures. Temperature has remained low grade since yesterday evening. He feels his hip is starting to feel better. Area of outlined redness has improved some. He reports that other than the fevers and hip pain, he has been feeling fine. Denies any chest pain, shortness of breath, N/V/D, urinary symptoms. Functional Status: Reports: Pain Controlled, Tolerating Diet, Ambulating, Urinating. Denies: New Symptoms - Review of Systems General: Reports: Fever, Weakness HEENT: Reports: No Symptoms Pulmonary: Reports: No Symptoms Cardiovascular: Reports: No Symptoms Gastrointestinal: Reports: No Symptoms Genitourinary: Reports: No Symptoms Musculoskeletal: Reports: Leg Pain (left upper anteriolateral leg) Skin: Reports: Other (redness improving) Neurological: Reports: Weakness Psychiatric: Reports: No Symptoms - Patient Data Vitals - Most Recent: Last Vital Signs Temp 99.6 F 08/07/20 08:40 Pulse 82 08/07/20 08:00 Resp 18 08/07/20 08:00 BP 107/39 L 08/07/20 08:00 Pulse Ox 98 08/07/20 08:00 Weight - Most Recent: 248 lb I&O - Last 24 Hours: Intake & Output 08/06/20 08/07/20 08/07/20 22:59 06:59 14:59 Intake Total 50 50 Balance 50 50 Lab Results Last 24 Hours: Laboratory Results - last 24 hr 08/06/20 08/06/20 08/06/20 Range/Units 12:58 12:58 12:58 WBC 18.4 H (5.0-10.0) 10^3/uL RBC 4.41 L (4.50-6.00) 10^6/uL Hgb 13.7 L (14.0-18.0) g/dL Hct 39.8 L (40.0-54.0) % MCV 90.2 (82.0-94.0) fL MCH 31.1 (27.0-32.0) pg MCHC 34.4 (33.0-38.0) g/dL RDW Coeff of Laura 14.9 (11.0-15.0) % Plt Count 223 (150-400) 10^3/uL Neut % (Auto) (35-85) % Lymph % (Auto) (10-55) % [place] % (Auto) (0-16) % Eos % (Auto) (0-5) % Baso % (Auto) (0-3) % Neut # (Auto) (1.80-7.00) 10^3/uL Lymph # (Auto) (1.00-4.80) 10^3/uL [place] # (Auto) (0.00-0.80) 10^3/uL Eos # (Auto) (0.00-0.45) 10^3/uL Baso # (Auto) 10^3/uL Add Manual Diff Yes Neutrophils % (Manual) 85 (35-85) % Lymphocytes % (Manual) 9 L (21-55) % Monocytes % (Manual) 6 (2-12) % Sodium 138 (136-145) mEq/L Potassium 4.4 (3.5-5.0) mEq/L Chloride 101 (98-106) mEq/L Carbon Dioxide 25 (21-32) mmol/L BUN 54 H D (7-18) mg/dL Creatinine 2.4 H (0.7-1.3) mg/dL Est Cr Clr Drug Dosing 29.20 mL/min Estimated GFR (MDRD) 27 L (>=60) mL/min Glucose 123 H D (75-99) mg/dL POC Glucose (75-105) mg/dl Lactic Acid 1.9 (0.4-2.0) mmol/L Calcium 9.3 (8.4-10.1) mg/dL Total Bilirubin 0.6 (0.0-1.0) mg/dL AST 16 (15-37) U/L ALT 24 (12-78) U/L Alkaline Phosphatase 83 (46-116) U/L C-Reactive Protein 32.7 H (0.2-0.8) mg/dL Total Protein 8.2 (6.4-8.2) g/dL Albumin 3.1 L (3.4-5.0) g/dL SARS CoV-2 RNA Rapid QAMAR (NEGATIVE) 08/06/20 08/06/20 08/07/20 Range/Units 12:58 19:47 07:02 WBC 14.3 H (5.0-10.0) 10^3/uL RBC 3.74 L (4.50-6.00) 10^6/uL Hgb 11.6 L (14.0-18.0) g/dL Hct 34.0 L (40.0-54.0) % MCV 90.9 (82.0-94.0) fL MCH 31.0 (27.0-32.0) pg MCHC 34.1 (33.0-38.0) g/dL RDW Coeff of Laura 15.1 H (11.0-15.0) % Plt Count 209 (150-400) 10^3/uL Neut % (Auto) 85.0 (35-85) % Lymph % (Auto) 5.7 L (10-55) % [place] % (Auto) 7.2 (0-16) % Eos % (Auto) 2.0 (0-5) % Baso % (Auto) 0.1 (0-3) % Neut # (Auto) 12.16 H (1.80-7.00) 10^3/uL Lymph # (Auto) 0.82 L (1.00-4.80) 10^3/uL [place] # (Auto) 1.03 H (0.00-0.80) 10^3/uL Eos # (Auto) 0.28 (0.00-0.45) 10^3/uL Baso # (Auto) 0.01 10^3/uL Add Manual Diff Neutrophils % (Manual) (35-85) % Lymphocytes % (Manual) (21-55) % Monocytes % (Manual) (2-12) % Sodium (136-145) mEq/L Potassium (3.5-5.0) mEq/L Chloride (98-106) mEq/L Carbon Dioxide (21-32) mmol/L BUN (7-18) mg/dL Creatinine (0.7-1.3) mg/dL Est Cr Clr Drug Dosing mL/min Estimated GFR (MDRD) (>=60) mL/min Glucose (75-99) mg/dL POC Glucose 88 (75-105) mg/dl Lactic Acid (0.4-2.0) mmol/L Calcium (8.4-10.1) mg/dL Total Bilirubin (0.0-1.0) mg/dL AST (15-37) U/L ALT (12-78) U/L Alkaline Phosphatase (46-116) U/L C-Reactive Protein (0.2-0.8) mg/dL Total Protein (6.4-8.2) g/dL Albumin (3.4-5.0) g/dL SARS CoV-2 RNA Rapid QAMAR Negative (NEGATIVE) 08/07/20 Range/Units 07:02 WBC (5.0-10.0) 10^3/uL RBC (4.50-6.00) 10^6/uL Hgb (14.0-18.0) g/dL Hct (40.0-54.0) % MCV (82.0-94.0) fL MCH (27.0-32.0) pg MCHC (33.0-38.0) g/dL RDW Coeff of Laura (11.0-15.0) % Plt Count (150-400) 10^3/uL Neut % (Auto) (35-85) % Lymph % (Auto) (10-55) % [place] % (Auto) (0-16) % Eos % (Auto) (0-5) % Baso % (Auto) (0-3) % Neut # (Auto) (1.80-7.00) 10^3/uL Lymph # (Auto) (1.00-4.80) 10^3/uL [place] # (Auto) (0.00-0.80) 10^3/uL Eos # (Auto) (0.00-0.45) 10^3/uL Baso # (Auto) 10^3/uL Add Manual Diff Neutrophils % (Manual) (35-85) % Lymphocytes % (Manual) (21-55) % Monocytes % (Manual) (2-12) % Sodium 139 (136-145) mEq/L Potassium 4.8 (3.5-5.0) mEq/L Chloride 104 (98-106) mEq/L Carbon Dioxide 24 (21-32) mmol/L BUN 55 H (7-18) mg/dL Creatinine 2.4 H (0.7-1.3) mg/dL Est Cr Clr Drug Dosing 29.20 mL/min Estimated GFR (MDRD) 27 L (>=60) mL/min Glucose 145 H (75-99) mg/dL POC Glucose (75-105) mg/dl Lactic Acid (0.4-2.0) mmol/L Calcium 8.5 (8.4-10.1) mg/dL Total Bilirubin (0.0-1.0) mg/dL AST (15-37) U/L ALT (12-78) U/L Alkaline Phosphatase (46-116) U/L C-Reactive Protein 33.0 H (0.2-0.8) mg/dL Total Protein (6.4-8.2) g/dL Albumin (3.4-5.0) g/dL SARS CoV-2 RNA Rapid QAMAR (NEGATIVE) Med Orders - Current: Current Medications Acetaminophen (Tylenol) 650 mg PO Q4H PRN PRN Reason: Pain (Mild 1-3)/fever Last Admin: 08/06/20 23:54 Dose: 650 mg Documented by: Alogliptin Benzoate (Alogliptin) 12.5 mg PO DAILY [facility] Last Admin: 08/07/20 07:41 Dose: 12.5 mg Documented by: Aspirin (Ecotrin) 325 mg PO BEDTIME [facility] Last Admin: 08/06/20 19:51 Dose: 325 mg Documented by: Cholecalciferol (Vitamin D3) 125 mcg PO DAILY [facility] Last Admin: 08/07/20 07:41 Dose: 125 mcg Documented by: Enoxaparin Sodium (Lovenox) 30 mg SUBCUT BEDTIME [facility] Clindamycin Phosphate 600 mg/ (Premix) 50 mls @ 100 mls/hr IV Q8H [facility] Last Admin: 08/07/20 07:41 Dose: 100 mls/hr Documented by: Sodium Chloride (Normal Saline) 1,000 mls @ 100 mls/hr IV ASDIRECTED [facility] Stop: 08/07/20 10:13 Last Admin: 08/07/20 01:10 Dose: 100 mls/hr Documented by: Insulin Glargine (Lantus) 38 unit SUBCUT BID [facility] Last Admin: 08/07/20 07:43 Dose: 38 units Documented by: Magnesium Oxide (Magnesium Oxide) 500 mg PO DAILY [facility] Last Admin: 08/07/20 07:41 Dose: 500 mg Documented by: Morphine Sulfate (Morphine) 2 mg IVPUSH Q2H PRN PRN Reason: Pain (severe 7-10) Non-Formulary Medication (Atorvastatin [Lipitor]) 20 mg PO BEDTIME [facility] Non-Formulary Medication (Dalfampridine [Ampyra]) 10 mg PO Q12HR [facility] Non-Formulary Medication (Folic Acid [Folic Acid]) 1 mg PO DAILY [facility] Non-Formulary Medication (Interferon Beta-1b [Betaseron]) 1 ml SUBCUT Q48H [facility] Non-Formulary Medication (Metoprolol Tartrate [Metoprolol Tartrate]) 25 mg PO BID [facility] Ondansetron HCl (Zofran) 4 mg IV Q6H PRN PRN Reason: Nausea/Vomiting Discontinued Medications Enoxaparin Sodium (Lovenox) 30 mg SUBCUT Q24H [facility] Last Admin: 08/06/20 16:43 Dose: 30 mg Documented by: Sodium Chloride (Normal Saline) 1,000 mls @ 125 mls/hr IV ASDIRECTED [facility] Stop: 08/07/20 00:14 Last Admin: 08/06/20 16:43 Dose: 125 mls/hr Documented by: Ibuprofen (Motrin) 600 mg PO Q6H PRN PRN Reason: Pain (mild 1-3) Last Admin: 08/07/20 07:40 Dose: 600 mg Documented by: Metoprolol Tartrate (Lopressor) 25 mg PO ONETIME ONE Stop: 08/06/20 20:01 Last Admin: 08/06/20 20:03 Dose: Not Given Documented by: Non-Formulary Medication (Lisinopril [Lisinopril]) 5 mg PO DAILY [facility] Non-Formulary Medication (Naproxen Sodium [Aleve]) 440 mg PO DAILY [facility] - Exam Quality Assessment: DVT Prophylaxis. No: Skin Breakdown General: Alert, Oriented, No Acute Distress Neck: Supple Lungs: Clear to Auscultation, Normal Respiratory Effort Cardiovascular: Regular Rate, Regular Rhythm GI/Abdominal Exam: Normal Bowel Sounds, Soft, Non-Tender Back Exam: Normal Inspection, Full Range of Motion. No: CVA Tenderness (L), CVA Tenderness (R) Extremities: Normal Range of Motion, Normal Capillary Refill, Pedal Edema (2+ pitting LLE), Increased Warmth (left upper anteriolatearl leg), Redness (improving, left upper anteriolateral leg) Peripheral Pulses: 2+: Dorsalis Pedis (L), Dorsalis Pedis (R) Wound/Incisions: No Drainage, Erythema Improving Neurological: No New Focal Deficit Psy/Mental Status: Alert, Normal Affect, Normal Mood Sepsis Event Note - Evaluation Sepsis Screening Result: No Definite Risk - Focused Exam Vital Signs: Vital Signs Temp Temp Pulse Resp BP Pulse Ox 08/07/20 08:40 99.6 F 08/07/20 08:00 100.5 F 82 18 107/39 L 98 08/07/20 07:40 100.5 F 08/07/20 03:20 100.0 F 70 20 97/38 L 95 08/07/20 00:00 100.2 F 66 20 95/38 L 97 - Problem List & Annotations (1) Cellulitis SNOMED Code(s): 490185136 Code(s): L03.90 - CELLULITIS, UNSPECIFIED Status: Acute Current Visit: Yes Qualifiers: Site of cellulitis: extremity Site of cellulitis of extremity: lower extremity Laterality: left Qualified Code(s): L03.116 - Cellulitis of left lower limb (2) Renal insufficiency SNOMED Code(s): 299001498, 244575833 Code(s): N28.9 - DISORDER OF KIDNEY AND URETER, UNSPECIFIED Status: Acute Current Visit: Yes (3) SIRS (systemic inflammatory response syndrome) SNOMED Code(s): 615170919 Code(s): R65.10 - SIRS OF NON-INFECTIOUS ORIGIN W/O ACUTE ORGAN DYSFUNCTION Status: Acute Current Visit: Yes - Problem List Review Problem List Initiated/Reviewed/Updated: Yes - My Orders Last 24 Hours: My Active Orders 08/07/20 09:12 Patient Status [ADT] Routine - Assessment Assessment:: Cellulitis with SIRS, blood cultures pending Renal Insufficiency Multiple Sclerosis - Plan Plan:: Patient developed cellulitis in area of recent medication injection. This morning, area of redness is improving. Area remains with mild calor. Does have swelling and hardening noted to area. Did have negative xrays yesterday. He is otherwise feeling well. WBC improved from 18.4 to 14.3 today. CRP up slightly to 33 from 32.7 yesterday. Creatinine remains at 2.4. Baseline creatinine 1.6. Will hold all NSAIDs and lisinopril at this time. Did receive 1 L NS. Hold metoprolol if systolic BP less than 100. Continue to monitor BP closely. Will give fluid bolus as needed. Has continued low grade temperatures. Blood cultures pending at this time. Will continue with clindamycin. Switch to inpatient. Repeat labs in am. Dr. Howe also saw and examined the patient and is agreeable with plan of care.
[2020-08-07] MEDS: DALFAMPRIDINE 10 MG PO SCH (11:15)
[2020-08-07] MEDS: Folic Acid 1 MG Tab PO SCH (11:57)
[2020-08-07] MEDS: Acetaminophen 500 MG Tab PO PRN (18:41)
[2020-08-07] MEDS: Aspirin 325 MG Tab.EC PO SCH (19:42)
[2020-08-07] MEDS: Enoxaparin 30 MG/0.3 ML Syringe SUBCUT SCH (19:43)
[2020-08-07] MEDS: atorvaSTATin 20 MG Tab PO SCH (19:43)
[2020-08-07] MEDS: Metoprolol Tartrate 25 MG Tab PO SCH (20:16)
[2020-08-08] MEDS: Acetaminophen 500 MG Tab PO PRN ×3 (01:23→15:36)
[2020-08-08] MEDS: Clindamycin Phosphate in D5W 600 MG in Premix Bag 1 BAG IV SCH ×4 (07:34→15:39)
[2020-08-08] MEDS: Cholecalciferol (Vitamin D3) 25 MCG Tab PO SCH (07:34)
[2020-08-08] MEDS: Folic Acid 1 MG Tab PO SCH (07:35)
[2020-08-08] MEDS: Insulin Glarg,Human.Rec.Analog 100 Unit/ML SUBCUT SCH ×2 (07:38→20:06)
[2020-08-08] MEDS: Metoprolol Tartrate 25 MG Tab PO SCH ×2 (07:57→20:05)
[2020-08-08] MEDS ORDERED: Sodium Chloride 0.9% 1,000 ML IV SCH (08:45)
--- NOTE | 2020-08-08 08:54 | PCM.PN ---
- General Info Date of Service: 08/08/20 Admission Dx/Problem (Free Text): Left Leg Cellulitis Renal Insufficiency Subjective Update: Shady is a pleasant 75 year old male who was admitted to the hospital yesterday for left thigh cellulitis, renal insufficiency, and concerns for possible sepsi s. He reports he is feeling better this morning. Has not had high temperatures. Temperature has remained low grade since yesterday evening. He feels his hip is starting to feel better. Area of outlined redness has improved some. He reports that other than the fevers and hip pain, he has been feeling fine. Denies any chest pain, shortness of breath, N/V/D, urinary symptoms. 08-08-2020 Patient up resting in chair. States is feeling good this am. Did spike fever of 102.2 during the night, down now to 99.9 with tylenol. Admits to spiking temps at home during the night prior to his being admitted as well. Appetite has been good. Less hip pain. Per the nurse, redness has extended as well as more firm but less intense and warm than yesterday. Functional Status: Reports: Pain Controlled, Tolerating Diet, Ambulating - Review of Systems General: Reports: Fever, Fatigue, Malaise. Denies: Weakness HEENT: Reports: No Symptoms Pulmonary: Denies: Shortness of Breath, Cough Cardiovascular: Denies: Chest Pain, Lightheadedness Gastrointestinal: Denies: Abdominal Pain, Nausea, Vomiting Genitourinary: Reports: No Symptoms Musculoskeletal: Reports: Joint Pain Skin: Reports: Other (redness and warmth to hip) Neurological: Reports: Weakness - Patient Data Vitals - Most Recent: Last Vital Signs Temp 99.9 F 08/08/20 07:39 Pulse 62 08/08/20 07:57 Resp 16 08/08/20 07:39 BP 112/40 L 08/08/20 07:57 Pulse Ox 97 08/08/20 07:39 Weight - Most Recent: 248 lb I&O - Last 24 Hours: Intake & Output 08/07/20 08/08/20 08/08/20 22:59 06:59 14:59 Intake Total 50 50 Balance 50 50 Lab Results Last 24 Hours: Laboratory Results - last 24 hr 08/08/20 08/08/20 Range/Units 05:00 05:00 WBC 14.2 H (5.0-10.0) 10^3/uL RBC 3.57 L (4.50-6.00) 10^6/uL Hgb 11.1 L (14.0-18.0) g/dL Hct 32.7 L (40.0-54.0) % MCV 91.6 (82.0-94.0) fL MCH 31.1 (27.0-32.0) pg MCHC 33.9 (33.0-38.0) g/dL RDW Coeff of Laura 14.7 (11.0-15.0) % Plt Count 221 (150-400) 10^3/uL Neut % (Auto) 81.5 (35-85) % Lymph % (Auto) 7.2 L (10-55) % [place] % (Auto) 8.6 (0-16) % Eos % (Auto) 2.6 (0-5) % Baso % (Auto) 0.1 (0-3) % Neut # (Auto) 11.58 H (1.80-7.00) 10^3/uL Lymph # (Auto) 1.02 (1.00-4.80) 10^3/uL [place] # (Auto) 1.22 H (0.00-0.80) 10^3/uL Eos # (Auto) 0.37 (0.00-0.45) 10^3/uL Baso # (Auto) 0.01 10^3/uL Sodium 139 (136-145) mEq/L Potassium 5.3 H (3.5-5.0) mEq/L Chloride 107 H (98-106) mEq/L Carbon Dioxide 25 (21-32) mmol/L BUN 50 H (7-18) mg/dL Creatinine 2.1 H (0.7-1.3) mg/dL Est Cr Clr Drug Dosing 33.37 mL/min Estimated GFR (MDRD) 31 L (>=60) mL/min Glucose 67 L D (75-99) mg/dL Calcium 8.4 (8.4-10.1) mg/dL C-Reactive Protein 30.5 H (0.2-0.8) mg/dL Ivan Results Last 24 Hours: Microbiology 08/06/20 12:58 Aerobic Blood Culture - Preliminary Blood - Venous - Lab Draw NO GROWTH AFTER 1 DAY Anaerobic Blood Culture - Preliminary NO GROWTH AFTER 1 DAY 08/06/20 12:58 Aerobic Blood Culture - Preliminary Blood - Venous NO GROWTH AFTER 1 DAY Anaerobic Blood Culture - Preliminary NO GROWTH AFTER 1 DAY Med Orders - Current: Current Medications Acetaminophen (Tylenol Extra Strength) 1,000 mg PO Q6H PRN PRN Reason: Pain (Mild 1-3)/fever Last Admin: 08/08/20 07:35 Dose: 1,000 mg Documented by: Alogliptin Benzoate (Alogliptin) 12.5 mg PO DAILY [facility] Last Admin: 08/08/20 07:34 Dose: 12.5 mg Documented by: Aspirin (Ecotrin) 325 mg PO BEDTIME [facility] Last Admin: 08/07/20 19:42 Dose: 325 mg Documented by: Atorvastatin Calcium (Lipitor) 20 mg PO BEDTIME [facility] Last Admin: 08/07/20 19:43 Dose: 20 mg Documented by: Cholecalciferol (Vitamin D3) 125 mcg PO DAILY [facility] Last Admin: 08/08/20 07:34 Dose: 125 mcg Documented by: Enoxaparin Sodium (Lovenox) 30 mg SUBCUT BEDTIME [facility] Last Admin: 08/07/20 19:43 Dose: 30 mg Documented by: Folic Acid (Folic Acid) 1 mg PO DAILY [facility] Last Admin: 08/08/20 07:35 Dose: 1 mg Documented by: Clindamycin Phosphate 600 mg/ (Premix) 50 mls @ 100 mls/hr IV Q8H [facility] Last Admin: 08/08/20 07:34 Dose: 100 mls/hr Documented by: Insulin Glargine (Lantus) 38 unit SUBCUT BID [facility] Last Admin: 08/08/20 07:38 Dose: 38 units Documented by: Magnesium Oxide (Magnesium Oxide) 500 mg PO DAILY [facility] Last Admin: 08/08/20 07:35 Dose: 500 mg Documented by: Metoprolol Tartrate (Lopressor) 25 mg PO BID [facility] Last Admin: 08/08/20 07:57 Dose: 25 mg Documented by: Morphine Sulfate (Morphine) 2 mg IVPUSH Q2H PRN PRN Reason: Pain (severe 7-10) Dalfampridine [ Ampyra] 10 Mg Ptom 0 mg PO Q12H [facility] Last Admin: 08/07/20 11:15 Dose: Not Given Documented by: Interferon Beta-1b [ Betaseron] 1 Ml Ptom 0 ml SUBCUT Q48H [facility] Last Admin: 08/07/20 11:13 Dose: Not Given Documented by: Ondansetron HCl (Zofran) 4 mg IV Q6H PRN PRN Reason: Nausea/Vomiting Discontinued Medications Acetaminophen (Tylenol) 650 mg PO Q4H PRN PRN Reason: Pain (Mild 1-3)/fever Last Admin: 08/06/20 23:54 Dose: 650 mg Documented by: Enoxaparin Sodium (Lovenox) 30 mg SUBCUT Q24H [facility] Last Admin: 08/06/20 16:43 Dose: 30 mg Documented by: Sodium Chloride (Normal Saline) 1,000 mls @ 125 mls/hr IV ASDIRECTED [facility] Stop: 08/07/20 00:14 Last Admin: 08/06/20 16:43 Dose: 125 mls/hr Documented by: Sodium Chloride (Normal Saline) 1,000 mls @ 100 mls/hr IV ASDIRECTED [facility] Stop: 08/07/20 10:13 Last Admin: 08/07/20 01:10 Dose: 100 mls/hr Documented by: Sodium Chloride (Normal Saline) 1,000 mls @ 50 mls/hr IV ASDIRECTED [facility] Ibuprofen (Motrin) 600 mg PO Q6H PRN PRN Reason: Pain (mild 1-3) Last Admin: 08/07/20 07:40 Dose: 600 mg Documented by: Metoprolol Tartrate (Lopressor) 25 mg PO ONETIME ONE Stop: 08/06/20 20:01 Last Admin: 08/06/20 20:03 Dose: Not Given Documented by: Non-Formulary Medication (Lisinopril [Lisinopril]) 5 mg PO DAILY [facility] Last Admin: 08/07/20 09:19 Dose: Not Given Documented by: Non-Formulary Medication (Naproxen Sodium [Aleve]) 440 mg PO DAILY [facility] Last Admin: 08/07/20 09:19 Dose: Not Given Documented by: Vancomycin HCl (Pharmacy To Dose - Vancomycin) 1 dose .XX ASDIRECTED [facility] - Exam General: Alert, Oriented HEENT: Mucous Membr. Moist/[place] Neck: Supple Lungs: Clear to Auscultation, Normal Respiratory Effort Cardiovascular: Regular Rate, Regular Rhythm GI/Abdominal Exam: Normal Bowel Sounds, Soft, Non-Tender Extremities: Increased Warmth, Redness, Other (patient has area to left hip with skin markings. Redness does extend beyond the markings, thigh is firm. Warm to the touch. Per Dr. Howe, intensity of redness and warmth is improved from yesterday. ) Skin: Warm Wound/Incisions: No Drainage, Erythema Neurological: No New Focal Deficit Sepsis Event Note - Evaluation Sepsis Screening Result: No Definite Risk - Focused Exam Vital Signs: Vital Signs Temp Temp Pulse Pulse Resp BP BP 08/08/20 07:57 62 112/40 L 08/08/20 07:39 99.9 F 62 16 112/40 L 08/08/20 07:35 99.9 F 08/08/20 04:00 100.0 F 72 16 101/43 L 08/08/20 01:23 102.2 F H 08/08/20 01:20 102.2 F H 08/07/20 23:20 101.8 F H 86 20 123/48 L 08/07/20 21:00 101.3 F H Pulse Ox 08/08/20 07:57 08/08/20 07:39 97 08/08/20 07:35 08/08/20 04:00 95 08/08/20 01:23 08/08/20 01:20 08/07/20 23:20 97 08/07/20 21:00 - Problem List & Annotations (1) Cellulitis SNOMED Code(s): 112466929 Code(s): L03.90 - CELLULITIS, UNSPECIFIED Status: Acute Priority: High Current Visit: Yes Qualifiers: Site of cellulitis: extremity Site of cellulitis of extremity: lower extremity Laterality: left Qualified Code(s): L03.116 - Cellulitis of left lower limb (2) Fever SNOMED Code(s): 583076403 Code(s): R50.9 - FEVER, UNSPECIFIED Status: Acute Priority: High Current Visit: Yes Qualifiers: Fever type: unspecified Qualified Code(s): R50.9 - Fever, unspecified (3) Acute renal insufficiency SNOMED Code(s): 240194630 Code(s): N28.9 - DISORDER OF KIDNEY AND URETER, UNSPECIFIED Status: Acute Priority: High Current Visit: Yes - Problem List Review Problem List Initiated/Reviewed/Updated: Yes - Assessment Assessment:: Cellulitis with SIRS, blood cultures pending Renal Insufficiency Multiple Sclerosis - Plan Plan:: Patient developed cellulitis in area of recent medication injection. This morning, area of redness is improving. Area remains with mild calor. Does have swelling and hardening noted to area. Did have negative xrays yesterday. He is otherwise feeling well. WBC improved from 18.4 to 14.3 today. CRP up slightly to 33 from 32.7 yesterday. Creatinine remains at 2.4. Baseline creatinine 1.6. Will hold all NSAIDs and lisinopril at this time. Did receive 1 L NS. Hold metoprolol if systolic BP less than 100. Continue to monitor BP closely. Will give fluid bolus as needed. Has continued low grade temperatures. Blood cultures pending at this time. Will continue with clindamycin. Switch to inpatient. Repeat labs in am. Dr. Howe also saw and examined the patient and is agreeable with plan of care. 08-08-2020 Labs noted to be stable, improving slightly. WBC 14.2, CRP 30 now. Creatinine improved to 2.1. Blood pressure remains low at times, continue to hold metoprolol if systolic BP less than 100. Blood cultures initially negative. As labs improving, will continue with IV Clindamycin. As did spike high temp during the night, inappropriate for discharge at this time. Will repeat labs in am.
[2020-08-08] MEDS: atorvaSTATin 20 MG Tab PO SCH (20:05)
[2020-08-08] MEDS: Aspirin 325 MG Tab.EC PO SCH (20:06)
[2020-08-08] MEDS: Enoxaparin 30 MG/0.3 ML Syringe SUBCUT SCH (20:07)
[2020-08-08] MEDS: Sodium Chloride 0.9% 1,000 ML IV SCH (20:08)
[2020-08-09] MEDS: Acetaminophen 500 MG Tab PO PRN ×3 (00:07→18:01)
[2020-08-09] MEDS: Clindamycin Phosphate in D5W 600 MG in Premix Bag 1 BAG IV SCH ×6 (00:07→16:38)
[2020-08-09] MEDS: Metoprolol Tartrate 25 MG Tab PO SCH ×2 (07:53→19:52)
[2020-08-09] MEDS: Sodium Chloride 0.9% 1,000 ML IV SCH (07:53)
[2020-08-09] MEDS: Folic Acid 1 MG Tab PO SCH (07:54)
[2020-08-09] MEDS: Cholecalciferol (Vitamin D3) 25 MCG Tab PO SCH (07:54)
[2020-08-09] MEDS: Insulin Glarg,Human.Rec.Analog 100 Unit/ML SUBCUT SCH ×2 (08:06→21:04)
[2020-08-09] MEDS: cefTRIAXone 2 GM Vial IVPUSH SCH (16:38)
--- NOTE | 2020-08-09 19:05 | PCM.PN ---
- General Info Date of Service: 08/09/20 Admission Dx/Problem (Free Text): Left Leg Cellulitis Renal Insufficiency Subjective Update: Shady is a pleasant 75 year old male who was admitted to the hospital yesterday for left thigh cellulitis, renal insufficiency, and concerns for possible sepsi s. He reports he is feeling better this morning. Has not had high temperatures. Temperature has remained low grade since yesterday evening. He feels his hip is starting to feel better. Area of outlined redness has improved some. He reports that other than the fevers and hip pain, he has been feeling fine. Denies any chest pain, shortness of breath, N/V/D, urinary symptoms. 08-08-2020 Patient up resting in chair. States is feeling good this am. Did spike fever of 102.2 during the night, down now to 99.9 with tylenol. Admits to spiking temps at home during the night prior to his being admitted as well. Appetite has been good. Less hip pain. Per the nurse, redness has extended as well as more firm but less intense and warm than yesterday. 08-09-2020 Patient up in chair, admits to soreness of thigh but overall not experiencing much pain. Continues to have fevers in the evenings/night. 101.7 at 0400. Appetite good. Ambulating with walker, does have more issues with weakness when febrile. Functional Status: Reports: Pain Controlled, Tolerating Diet, Ambulating - Review of Systems General: Reports: Fever, Weakness, Fatigue, Malaise HEENT: Denies: Ear Pain, Sinus Congestion, Sore Throat Pulmonary: Denies: Shortness of Breath, Cough Cardiovascular: Denies: Chest Pain, Edema, Lightheadedness Gastrointestinal: Denies: Abdominal Pain, Nausea, Vomiting Genitourinary: Reports: No Symptoms Musculoskeletal: Reports: Leg Pain, Joint Pain Skin: Reports: Other (redness) - Patient Data Vitals - Most Recent: Last Vital Signs Temp 101.3 F H 08/09/20 18:01 Pulse 82 08/09/20 16:00 Resp 18 08/09/20 16:00 BP 122/67 08/09/20 16:00 Pulse Ox 98 08/09/20 16:00 Weight - Most Recent: 248 lb I&O - Last 24 Hours: Intake & Output 02/08/09/20 08/09/20 06:59 14:59 22:59 Intake Total 50 638 Balance 50 638 Lab Results Last 24 Hours: Laboratory Results - last 24 hr 08/09/20 08/09/20 Range/Units 05:00 05:00 WBC 15.3 H (5.0-10.0) 10^3/uL RBC 3.31 L (4.50-6.00) 10^6/uL Hgb 10.4 L (14.0-18.0) g/dL Hct 30.8 L (40.0-54.0) % MCV 93.1 (82.0-94.0) fL MCH 31.4 (27.0-32.0) pg MCHC 33.8 (33.0-38.0) g/dL RDW Coeff of Laura 15.1 H (11.0-15.0) % Plt Count 245 (150-400) 10^3/uL Neut % (Auto) 81.2 (35-85) % Lymph % (Auto) 7.9 L (10-55) % [place] % (Auto) 8.3 (0-16) % Eos % (Auto) 2.5 (0-5) % Baso % (Auto) 0.1 (0-3) % Neut # (Auto) 12.41 H (1.80-7.00) 10^3/uL Lymph # (Auto) 1.20 (1.00-4.80) 10^3/uL [place] # (Auto) 1.26 H (0.00-0.80) 10^3/uL Eos # (Auto) 0.38 (0.00-0.45) 10^3/uL Baso # (Auto) 0.02 10^3/uL Sodium 139 (136-145) mEq/L Potassium 5.3 H (3.5-5.0) mEq/L Chloride 107 H (98-106) mEq/L Carbon Dioxide 25 (21-32) mmol/L BUN 43 H (7-18) mg/dL Creatinine 2.1 H (0.7-1.3) mg/dL Est Cr Clr Drug Dosing 33.37 mL/min Estimated GFR (MDRD) 31 L (>=60) mL/min Glucose 62 L (75-99) mg/dL Calcium 8.6 (8.4-10.1) mg/dL C-Reactive Protein 33.1 H (0.2-0.8) mg/dL Ivan Results Last 24 Hours: Microbiology 08/06/20 12:58 Aerobic Blood Culture - Preliminary Blood - Venous - Lab Draw NO GROWTH AFTER 3 DAYS Anaerobic Blood Culture - Preliminary NO GROWTH AFTER 3 DAYS 08/06/20 12:58 Aerobic Blood Culture - Preliminary Blood - Venous NO GROWTH AFTER 3 DAYS Anaerobic Blood Culture - Preliminary NO GROWTH AFTER 3 DAYS Med Orders - Current: Current Medications Acetaminophen (Tylenol Extra Strength) 1,000 mg PO Q6H PRN PRN Reason: Pain (Mild 1-3)/fever Last Admin: 08/09/20 18:01 Dose: 1,000 mg Documented by: Alogliptin Benzoate (Alogliptin) 12.5 mg PO DAILY [facility] Last Admin: 08/09/20 07:54 Dose: 12.5 mg Documented by: Aspirin (Ecotrin) 325 mg PO BEDTIME [facility] Last Admin: 08/08/20 20:06 Dose: 325 mg Documented by: Atorvastatin Calcium (Lipitor) 20 mg PO BEDTIME [facility] Last Admin: 08/08/20 20:05 Dose: 20 mg Documented by: Ceftriaxone Sodium (Rocephin) 2 gm IVPUSH Q24H [facility] Last Admin: 08/09/20 16:38 Dose: 2 gm Documented by: Cholecalciferol (Vitamin D3) 125 mcg PO DAILY [facility] Last Admin: 08/09/20 07:54 Dose: 125 mcg Documented by: Enoxaparin Sodium (Lovenox) 30 mg SUBCUT BEDTIME [facility] Last Admin: 08/08/20 20:07 Dose: 30 mg Documented by: Folic Acid (Folic Acid) 1 mg PO DAILY [facility] Last Admin: 08/09/20 07:54 Dose: 1 mg Documented by: Clindamycin Phosphate 600 mg/ (Premix) 50 mls @ 100 mls/hr IV Q8H [facility] Last Admin: 08/09/20 16:38 Dose: 100 mls/hr Documented by: Insulin Glargine (Lantus) 38 unit SUBCUT BID [facility] Last Admin: 08/09/20 08:06 Dose: 38 units Documented by: Magnesium Oxide (Magnesium Oxide) 500 mg PO DAILY [facility] Last Admin: 08/09/20 07:54 Dose: 500 mg Documented by: Metoprolol Tartrate (Lopressor) 25 mg PO BID [facility] Last Admin: 08/09/20 07:53 Dose: 25 mg Documented by: Morphine Sulfate (Morphine) 2 mg IVPUSH Q2H PRN PRN Reason: Pain (severe 7-10) Dalfampridine [ Ampyra] 10 Mg Ptom 0 mg PO Q12H [facility] Last Admin: 08/07/20 11:15 Dose: Not Given Documented by: Interferon Beta-1b [ Betaseron] 1 Ml Ptom 0 ml SUBCUT Q48H [facility] Last Admin: 08/07/20 11:13 Dose: Not Given Documented by: Ondansetron HCl (Zofran) 4 mg IV Q6H PRN PRN Reason: Nausea/Vomiting Discontinued Medications Acetaminophen (Tylenol) 650 mg PO Q4H PRN PRN Reason: Pain (Mild 1-3)/fever Last Admin: 08/06/20 23:54 Dose: 650 mg Documented by: Enoxaparin Sodium (Lovenox) 30 mg SUBCUT Q24H [facility] Last Admin: 08/06/20 16:43 Dose: 30 mg Documented by: Sodium Chloride (Normal Saline) 1,000 mls @ 125 mls/hr IV ASDIRECTED [facility] Stop: 08/07/20 00:14 Last Admin: 08/06/20 16:43 Dose: 125 mls/hr Documented by: Sodium Chloride (Normal Saline) 1,000 mls @ 100 mls/hr IV ASDIRECTED [facility] Stop: 08/07/20 10:13 Last Admin: 08/07/20 01:10 Dose: 100 mls/hr Documented by: Sodium Chloride (Normal Saline) 1,000 mls @ 50 mls/hr IV ASDIRECTED [facility] Sodium Chloride (Normal Saline) 1,000 mls @ 50 mls/hr IV ASDIRECTED [facility] Last Admin: 08/09/20 07:53 Dose: 50 mls/hr Documented by: Vancomycin HCl 1.25 gm/ Sodium (Chloride) 250 mls @ 166.667 mls/hr IV Q24H [facility] Last Admin: 08/08/20 18:29 Dose: Not Given Documented by: Vancomycin HCl 1.25 gm/ Sodium (Chloride) 250 mls @ 166.667 mls/hr IV Q24H [facility] Last Admin: 08/08/20 18:23 Dose: 166.667 mls/hr Documented by: Ibuprofen (Motrin) 600 mg PO Q6H PRN PRN Reason: Pain (mild 1-3) Last Admin: 08/07/20 07:40 Dose: 600 mg Documented by: Metoprolol Tartrate (Lopressor) 25 mg PO ONETIME ONE Stop: 08/06/20 20:01 Last Admin: 08/06/20 20:03 Dose: Not Given Documented by: Non-Formulary Medication (Lisinopril [Lisinopril]) 5 mg PO DAILY [facility] Last Admin: 08/07/20 09:19 Dose: Not Given Documented by: Non-Formulary Medication (Naproxen Sodium [Aleve]) 440 mg PO DAILY [facility] Last Admin: 08/07/20 09:19 Dose: Not Given Documented by: Vancomycin HCl (Pharmacy To Dose - Vancomycin) 1 dose .XX ASDIRECTED [facility] Vancomycin HCl (Pharmacy To Dose - Vancomycin) 0 dose .XX ASDIRECTED [facility] - Exam General: Alert, Oriented HEENT: Mucous Membr. Moist/[place] Neck: Supple Lungs: Clear to Auscultation, Normal Respiratory Effort Cardiovascular: Regular Rate, Regular Rhythm GI/Abdominal Exam: Normal Bowel Sounds, Soft, Non-Tender Extremities: Normal Inspection, No Pedal Edema, Increased Warmth, Redness, Other (continues to have warmth, redness and firm tissue to left thigh. Redness seems to be less intense.) Skin: Warm, Dry Wound/Incisions: Erythema Improving Neurological: No New Focal Deficit Sepsis Event Note - Evaluation Sepsis Screening Result: No Definite Risk - Focused Exam Vital Signs: Vital Signs Temp Temp Pulse Pulse Resp BP BP 08/09/20 18:01 101.3 F H 08/09/20 16:00 101.3 F H 82 18 122/67 08/09/20 12:00 98.9 F 75 18 136/66 08/09/20 07:59 99.8 F 82 18 124/55 L 08/09/20 07:53 82 124/55 L Pulse Ox 08/09/20 18:01 08/09/20 16:00 98 08/09/20 12:00 96 08/09/20 07:59 97 08/09/20 07:53 - Problem List & Annotations (1) Cellulitis SNOMED Code(s): 973948326 Code(s): L03.90 - CELLULITIS, UNSPECIFIED Status: Acute Priority: High Current Visit: Yes Qualifiers: Site of cellulitis: extremity Site of cellulitis of extremity: lower extremity Laterality: left Qualified Code(s): L03.116 - Cellulitis of left lower limb (2) Fever SNOMED Code(s): 955167543 Code(s): R50.9 - FEVER, UNSPECIFIED Status: Acute Priority: High Current Visit: Yes Qualifiers: Fever type: unspecified Qualified Code(s): R50.9 - Fever, unspecified (3) Acute renal insufficiency SNOMED Code(s): 687052382 Code(s): N28.9 - DISORDER OF KIDNEY AND URETER, UNSPECIFIED Status: Acute Priority: High Current Visit: Yes - Problem List Review Problem List Initiated/Reviewed/Updated: Yes - My Orders Last 24 Hours: My Active Orders 08/09/20 08:20 Lower Leg wo Cont Lt [CT] Routine 08/09/20 16:00 cefTRIAXone [Rocephin] 2 gm IVPUSH Q24H - Assessment Assessment:: Cellulitis with SIRS, blood cultures pending Renal Insufficiency Multiple Sclerosis - Plan Plan:: Patient developed cellulitis in area of recent medication injection. This morning, area of redness is improving. Area remains with mild calor. Does have swelling and hardening noted to area. Did have negative xrays yesterday. He is otherwise feeling well. WBC improved from 18.4 to 14.3 today. CRP up slightly to 33 from 32.7 yesterday. Creatinine remains at 2.4. Baseline creatinine 1.6. Will hold all NSAIDs and lisinopril at this time. Did receive 1 L NS. Hold metoprolol if systolic BP less than 100. Continue to monitor BP closely. Will give fluid bolus as needed. Has continued low grade temperatures. Blood cultures pending at this time. Will continue with clindamycin. Switch to inpatient. Repeat labs in am. Dr. Howe also saw and examined the patient and is agreeable with plan of care. 08-08-2020 Labs noted to be stable, improving slightly. WBC 14.2, CRP 30 now. Creatinine improved to 2.1. Blood pressure remains low at times, continue to hold metoprolol if systolic BP less than 100. Blood cultures initially negative. As labs improving, will continue with IV Clindamycin. As did spike high temp during the night, inappropriate for discharge at this time. Will repeat labs in am. 08-09-2020 Labs noted to have increase in WBC to 15.3. CRP up to 33. Creatinine remains stable at 2.1. Blood cultures remain negative. Left thigh remains red, warm and firm. Continues to spike temps. Blood pressure is stable. CT scan of thigh done today, no abscess noted. Contacted Dr. Butler, infectious disease, at [facility]. Advised to clarify cephalosporin allergy as different reactions noted there versus here as would benefit from adding Ceftriaxone. Patient unaware of any allergy to this, no record of allergy in clinic. Reaction listed here as shortness of breath, at [facility], listed as GI. Called pharmacy to clarify, no listed allergy to cephalosporins. In review of past chart, has had Rocephin in the past. Will add today and stop Vancomycin per ID recommendations. Repeat labs in am.
[2020-08-09] MEDS: Aspirin 325 MG Tab.EC PO SCH (19:52)
[2020-08-09] MEDS: atorvaSTATin 20 MG Tab PO SCH (19:52)
[2020-08-09] MEDS: Enoxaparin 30 MG/0.3 ML Syringe SUBCUT SCH (19:52)
[2020-08-10] MEDS: Clindamycin Phosphate in D5W 600 MG in Premix Bag 1 BAG IV SCH ×8 (00:04→23:59)
[2020-08-10] MEDS: Acetaminophen 500 MG Tab PO PRN ×3 (00:04→20:32)
[2020-08-10] MEDS: Folic Acid 1 MG Tab PO SCH (07:54)
[2020-08-10] MEDS: Metoprolol Tartrate 25 MG Tab PO SCH ×2 (07:54→20:33)
[2020-08-10] MEDS: Cholecalciferol (Vitamin D3) 25 MCG Tab PO SCH (07:54)
[2020-08-10] MEDS: Insulin Glarg,Human.Rec.Analog 100 Unit/ML SUBCUT SCH ×3 (08:53→20:34)
--- NOTE | 2020-08-10 09:47 | PN ---
DATE: 08/10/2020 S: Mr. Varghese continues to do well. He really is quite stoic and denies any complaints including pain. He was started on vancomycin a couple days ago and he has not really had any significant improvement to his cellulitis area. We did do a CT scan and looked for any abscess under this area and there was none. Infectious Disease was called by Fallon Chakraborty and they did recommend switching him from vancomycin over to Rocephin. O: VITAL SIGNS: Last night, he did have a temperature of 100.4 around midnight, but otherwise he has been afebrile. Blood pressures are fine. GENERAL: The patient is pleasant, alert, and cooperative. HEENT: Benign. NECK: Veins are flat. LUNGS: Appear clear. CARDIAC: Tones regular. ABDOMEN: Soft. EXTREMITIES: The left upper thigh shows less calor and erythema. His tissue is still very indurated in a pretty big area around the hip and anterior thigh area, but overall to me this looks improved. Lab work today shows stable white count. Renal function is stable as well. A CRP did come down slightly from yesterday. ASSESSMENT: 1. LEFT LOWER EXTREMITY CELLULITIS. 2. CHRONIC RENAL INSUFFICIENCY. 3. HYPERTENSION, CONTROLLED. 4. TYPE 2 DIABETES, REQUIRING INSULIN. P: Clinically, the patient looks better. We will continue with current doses of medication including the Cleocin and Rocephin. His blood sugars had been running a little bit low in the morning and we are going to back off his Lantus dose slightly. Otherwise, no change. STACI/BALDOMERO /[id number]
[2020-08-10] MEDS: cefTRIAXone 2 GM Vial IVPUSH SCH (15:10)
[2020-08-10] MEDS: Enoxaparin 30 MG/0.3 ML Syringe SUBCUT SCH (20:31)
[2020-08-10] MEDS: atorvaSTATin 20 MG Tab PO SCH (20:32)
[2020-08-10] MEDS: Aspirin 325 MG Tab.EC PO SCH (20:33)
[2020-08-11] MEDS: Acetaminophen 500 MG Tab PO PRN (02:45)
[2020-08-11] MEDS: Metoprolol Tartrate 25 MG Tab PO SCH (07:44)
[2020-08-11] MEDS: Cholecalciferol (Vitamin D3) 25 MCG Tab PO SCH (07:44)
[2020-08-11] MEDS: Folic Acid 1 MG Tab PO SCH (07:44)
[2020-08-11] MEDS: Clindamycin Phosphate in D5W 600 MG in Premix Bag 1 BAG IV SCH ×2 (07:44)
[2020-08-11] MEDS: Insulin Glarg,Human.Rec.Analog 100 Unit/ML SUBCUT SCH (07:45)
--- NOTE | 2020-08-12 02:06 | DISCH ---
ADMISSION DIAGNOSIS: Left hip cellulitis. DISCHARGE DIAGNOSIS: 1. LEFT HIP CELLULITIS. 2. CHRONIC RENAL INSUFFICIENCY WITH ACUTE EXACERBATION. 3. HYPERTENSION. 4. HYPERLIPIDEMIA. HISTORY: The patient is a 75-year-old who gives himself periodic injections for his multiple sclerosis. Friday night, he started having redness to his left upper hip where he gave his shot, and that weekend he was seen in the emergency room by Rafa Guthrie with an elevated white count, fever up to 102, and exacerbation of his chronic kidney disease with a creatinine around 2.4. It was felt that he had acute cellulitis with erythema, tenderness, and some thickening near the injection site. He was admitted for cellulitis and started on IV Cleocin. HOSPITAL COURSE: Clinically, patient has been stable since being here. Unfortunately, continues to run elevated temps anywhere from 100 to 102. We added vancomycin on day 3 of his admission. Consultation after 24 hours as he continued to spike temps with Infectious Disease was entertained. They recommended stopping the vancomycin and switching over to Rocephin, which has been there now for 48 hours. The patient has clinically done well, other than running some low-grade temps. His lab work is stable. His white count remains around 15,000. His CRP has only come down slightly from a paulo of 33 to 26. Renal function is improved with an initial creatinine of 2.4 down to 1.9. He is no longer on IV fluids. Because the patient has had some spreading of the erythema and there is more induration and firmness to the tissue around his initial area of redness, we did do a CT scan on day 3, which showed no abscess. Today, because he has not shown a significant amount of clinical improvement we repeated it, and once again there is only this soft tissue edema without any abscess formation. At this time, we are fillings his ongoing antibiotics with his Cleocin and Rocephin. We are going to put him in swing bed for further management. COMPLICATIONS: During his stay were none. CONSULTATIONS: None. DISPOSITION: Transferred to swing bed. PROCEDURES: CT scan of the left hip x2 without contrast. STACI/BALDOMERO /[id number]
== END 2020-08-11 15:20 | disposition home or self-care (01) | DRG 603 ==
LOC: CC.ED 12:28 → CC.MS 15:09 → UNDOADMOB 15:09 → CC.ED 15:20 → CC.MS 15:30 → UNDOADMOB 15:30 → OBSVTOIN 08-07 09:12 → INTOOBSV 08-07 09:12 → UNDODISIN 08-11 14:50
PROVIDERS: ADMIT Nurse Practitioner; ATTEND Family Medicine
DX: L03.116 Cellulitis of left lower limb (principal); N17.9 Acute kidney failure, unspecified; R65.10 Systemic inflammatory response syndrome (SIRS) of non-infectious origin without acute organ dysfunction; N18.9 Chronic kidney disease, unspecified; E78.5 Hyperlipidemia, unspecified; E78.00 Pure hypercholesterolemia, unspecified; N28.9 Disorder of kidney and ureter, unspecified; E11.22 Type 2 diabetes mellitus with diabetic chronic kidney disease; I12.9 Hypertensive chronic kidney disease with stage 1 through stage 4 chronic kidney disease, or unspecified chronic kidney disease; I10 Essential (primary) hypertension; E11.9 Type 2 diabetes mellitus without complications; G35 Multiple sclerosis; Z88.1 Allergy status to other antibiotic agents; Z95.1 Presence of aortocoronary bypass graft; Z88.2 Allergy status to sulfonamides; Z88.8 Allergy status to other drugs, medicaments and biological substances; Z79.82 Long term (current) use of aspirin; Z79.4 Long term (current) use of insulin; Z79.899 Other long term (current) drug therapy; Z20.822 Contact with and (suspected) exposure to COVID-19
CPT/HCPCS: 36415; 73700-LT; 80048; 80053; 82962; 83605; 85025; 86140; 87040; 96365; 96366; 96372; 97110-GP; 97161-GP; 97530-GP; 99220; 99284-25; A9270-GY; G0378; J0696; J1650; J1815-GY; J3370; J3490; J7030; J7050; U0002

== ENCOUNTER 2020-08-11 14:55 | Inpatient (IN) | payer MEDICARE, BC ==
[2020-08-11] MEDS ORDERED: Morphine 2 MG/ML SYRINGE IVPUSH PRN (16:19)
[2020-08-11] MEDS ORDERED: Ondansetron 4 MG/2 ML SDV IV PRN (16:19)
[2020-08-11] MEDS ORDERED: Glucagon,Human Recombinant 1 MG Vial IM PRN (16:19)
[2020-08-11] MEDS ORDERED: 50% Dextrose in Water 50 ML Syringe IV PRN (16:19)
[2020-08-11] MEDS: Acetaminophen 500 MG Tab PO PRN (17:02)
[2020-08-11] MEDS: cefTRIAXone 2 GM Vial IVPUSH SCH (17:04)
[2020-08-11] MEDS: Clindamycin Phosphate in D5W 600 MG in Premix Bag 1 BAG IV SCH ×2 (17:04)
[2020-08-11] MEDS: Enoxaparin 30 MG/0.3 ML Syringe SUBCUT SCH (19:57)
[2020-08-11] MEDS: Aspirin 325 MG Tab.EC PO SCH (19:57)
[2020-08-11] MEDS: atorvaSTATin 20 MG Tab PO SCH (19:58)
[2020-08-11] MEDS: Metoprolol Tartrate 25 MG Tab PO SCH (19:58)
[2020-08-11] MEDS: Insulin Glarg,Human.Rec.Analog 100 Unit/ML SUBCUT SCH (20:01)
[2020-08-12] MEDS: Clindamycin Phosphate in D5W 600 MG in Premix Bag 1 BAG IV SCH ×6 (00:13→15:36)
[2020-08-12] MEDS: Acetaminophen 500 MG Tab PO PRN ×3 (03:58→21:56)
[2020-08-12] MEDS: Folic Acid 1 MG Tab PO SCH (08:03)
[2020-08-12] MEDS: Cholecalciferol (Vitamin D3) 25 MCG Tab PO SCH (08:03)
[2020-08-12] MEDS: Insulin Glarg,Human.Rec.Analog 100 Unit/ML SUBCUT SCH ×2 (08:34→20:39)
[2020-08-12] MEDS: Metoprolol Tartrate 25 MG Tab PO SCH ×2 (09:13→19:52)
[2020-08-12] MEDS: cefTRIAXone 2 GM Vial IVPUSH SCH (15:37)
[2020-08-12] MEDS: Enoxaparin 30 MG/0.3 ML Syringe SUBCUT SCH (19:51)
[2020-08-12] MEDS: Aspirin 325 MG Tab.EC PO SCH (19:52)
[2020-08-12] MEDS: atorvaSTATin 20 MG Tab PO SCH (19:53)
[2020-08-13] MEDS: Cholecalciferol (Vitamin D3) 25 MCG Tab PO SCH (07:12)
[2020-08-13] MEDS: Folic Acid 1 MG Tab PO SCH (07:14)
[2020-08-13] MEDS: Clindamycin Phosphate in D5W 600 MG in Premix Bag 1 BAG IV SCH ×6 (07:14→15:38)
[2020-08-13] MEDS: Metoprolol Tartrate 25 MG Tab PO SCH ×2 (07:14→19:58)
[2020-08-13] MEDS: Insulin Glarg,Human.Rec.Analog 100 Unit/ML SUBCUT SCH ×2 (08:13→20:44)
[2020-08-13] MEDS: Acetaminophen 500 MG Tab PO PRN ×2 (12:26→21:53)
[2020-08-13] MEDS: cefTRIAXone 2 GM Vial IVPUSH SCH (15:39)
[2020-08-13] MEDS: Enoxaparin 30 MG/0.3 ML Syringe SUBCUT SCH (19:57)
[2020-08-13] MEDS: Aspirin 325 MG Tab.EC PO SCH (19:58)
[2020-08-13] MEDS: atorvaSTATin 20 MG Tab PO SCH (19:58)
[2020-08-14] MEDS: Clindamycin Phosphate in D5W 600 MG in Premix Bag 1 BAG IV SCH ×6 (00:17→16:02)
[2020-08-14] MEDS: Cholecalciferol (Vitamin D3) 25 MCG Tab PO SCH (07:15)
[2020-08-14] MEDS: Metoprolol Tartrate 25 MG Tab PO SCH ×2 (07:16→19:00)
[2020-08-14] MEDS: Folic Acid 1 MG Tab PO SCH (07:38)
[2020-08-14] MEDS: Insulin Glarg,Human.Rec.Analog 100 Unit/ML SUBCUT SCH ×2 (08:18→19:21)
[2020-08-14] MEDS: cefTRIAXone 2 GM Vial IVPUSH SCH (16:01)
[2020-08-14] MEDS: Acetaminophen 500 MG Tab PO PRN (17:23)
[2020-08-14] MEDS: atorvaSTATin 20 MG Tab PO SCH (19:00)
[2020-08-14] MEDS: Aspirin 325 MG Tab.EC PO SCH (19:00)
[2020-08-14] MEDS: Enoxaparin 30 MG/0.3 ML Syringe SUBCUT SCH (19:00)
[2020-08-15] MEDS: Clindamycin Phosphate in D5W 600 MG in Premix Bag 1 BAG IV SCH ×4 (00:13→07:34)
[2020-08-15] MEDS: Acetaminophen 500 MG Tab PO PRN (03:52)
[2020-08-15] MEDS: Metoprolol Tartrate 25 MG Tab PO SCH (07:34)
[2020-08-15] MEDS: Cholecalciferol (Vitamin D3) 25 MCG Tab PO SCH (07:35)
[2020-08-15] MEDS: Folic Acid 1 MG Tab PO SCH (07:35)
[2020-08-15] MEDS: Insulin Glarg,Human.Rec.Analog 100 Unit/ML SUBCUT SCH (07:37)
--- NOTE | 2020-08-15 09:53 | PCM.DCSUM1 ---
Discharge Summary - Hospital Course Free Text/Narrative:: Shady is a 75 yo male with hx of MS who was admitted to the hospital from the ED on 08/06/2020 for left hip cellulitis and chronic renal insufficiency with acute exacerbation. For a number of years, patient has been giving himself injections every 48 hours for his MS. Reports 2 days following last injection, site became red, warm, and tender, prompting ED presentation. He was admitted with elevated WBC count, temperature up to 102 and exacerbation of his CKD with creatinine up to 2.4. Was admitted and started on IV Cleocin. Unfortunately, patient had some worsening redness and induration of affected area. He also continued to have temperatures ranging from 102 to 100. Vancomycin was added on day 3 of hospitalization. Because there was increased erythema, firmness and induration extending from initial area of redness, CT scan of the area was obtained on day 3. CT revealed no abscess formation and rather just soft tissue swelling. Patient continued to have fever, so infectious disease was consulted. They recommended stopping the Vancomycin and switching to Rocephin and continue Cleocin. Patient continued to have low grade fever, so case was again discussed with ID. They recommend repeating the CT to ensure no abscess. CT was again repeated and continue to be negative for abscess and rather just soft tissue edema. His blood cultures also remained negative. IV Cleocin and Rocephin were continued and patient continued to show slow impro vement clinically. WBC improved from 18.4 on admit to 11 at time of discharge. CRP improved from 32.7 on admit to 19.6 on discharge. Creatinine improved from 2.4 on admit to 1.8 on discharge, which is patients baseline. Patient was anxious to discharge, so option of outpatient IV Rocephin was discussed. Arrangements were made with [facility] to assist with outpatient IM Rocephin injections for the next 7 days. He will also be discharged home on 300 mg clindamycin QID for the next 7 days. He is advised to monitor area closely for any worsening warmth, erythema, pain, or firmness and follow up if any of these worsen or if he develops fever again. He is otherwise advised to follow up for recheck in 6 days. - Discharge Data Discharge Date: 08/15/20 Discharge Disposition: Home, W Home Health Agency 06 Condition: Good - Referral to Home Health Date of Face to Face Encounter: 08/15/20 Reason for Homebound Status: Patient has multiple sclerosis with RLE weakness, hindering his ability to drive. Primary Care Physician: PCP Not In Area Skilled Need: Longterm for assistance with IM Rocephin injections as well as monitoring area of cellulitis for any worsening redness, induration or calor. - Discharge Diagnosis/Problem(s) (1) Acute renal insufficiency SNOMED Code(s): 233130528 ICD Code: N28.9 - DISORDER OF KIDNEY AND URETER, UNSPECIFIED Status: Acute Priority: High (2) Cellulitis SNOMED Code(s): 029658490 ICD Code: L03.90 - CELLULITIS, UNSPECIFIED Status: Acute Priority: High Qualifiers: Site of cellulitis: extremity Site of cellulitis of extremity: lower extremity Laterality: left Qualified Code(s): L03.116 - Cellulitis of left lower limb (3) Fever SNOMED Code(s): 263050387 ICD Code: R50.9 - FEVER, UNSPECIFIED Status: Acute Priority: High Qualifiers: Fever type: unspecified Qualified Code(s): R50.9 - Fever, unspecified - Patient Summary/Data Consults: Consultations 08/11/20 16:19 Consult to Physical Therapy [PT Evaluation and Treatment] [CONS] Routine - Patient Instructions Diet: Usual Diet as Tolerated Activity: As Tolerated Notify Provider of: Fever, Increased Pain, Swelling and Redness - Discharge Plan *PRESCRIPTION DRUG MONITORING PROGRAM REVIEWED*: Not Applicable *COPY OF PRESCRIPTION DRUG MONITORING REPORT IN PATIENT ROEL: Not Applicable Prescriptions/Med Rec: Clindamycin HCl 300 mg PO QID 7 Days #28 capsule cefTRIAXone [Rocephin] 2 gm IVPUSH Q24H 7 Days #7 vial Home Medications: Home Meds Aspirin 325 mg PO BEDTIME 06/22/14 [History] Cholecalciferol (Vitamin D3) [Vitamin D3] 5,000 mg PO DAILY 06/22/14 [History] Dalfampridine [Ampyra] 10 mg PO Q12HR 06/22/14 [History] Insulin Detemir [Levemir] 38 unit SQ BID 06/22/14 [History] Lisinopril 5 mg PO DAILY 06/22/14 [History] Naproxen Sodium [Aleve] 440 mg PO DAILY 06/22/14 [History] atorvaSTATin [Lipitor] 20 mg PO BEDTIME 06/22/14 [History] Magnesium 500 mg PO DAILY 12/04/17 [History] Metoprolol Tartrate 25 mg PO BID 12/04/17 [History] Testosterone Cypionate 200 mg IM Q30D 12/04/17 [History] Folic Acid 1 mg PO DAILY 06/19/20 [History] SitaGLIPtin [Januvia] 100 mg PO DAILY 06/19/20 [History] Clindamycin HCl 300 mg PO QID 7 Days #28 capsule 08/15/20 [Rx] cefTRIAXone [Rocephin] 2 gm IVPUSH Q24H 7 Days #7 vial 08/15/20 [Rx] Patient Handouts: Cellulitis, Adult, [id number] Referrals: Paul Pelayo MD [Ordering Only Provider] - Jose J Howe MD [ED Physician] - - Discharge Summary/Plan Comment DC Time >30 min.: Yes - General Info Date of Service: 08/15/20 Admission Dx/Problem (Free Text: Cellulitis Acute REnal Insufficiency Fever Subjective Update: Patient reports he is feeling well this morning. He continues to deny any pain to left hip/area of cellulitis. Reports his appetite is improved. Had 99 deg temp last evening. Has not had temp > 101 since evening of 08/11/2020. Functional Status: Reports: Pain Controlled, Tolerating Diet, Ambulating (with walker), Urinating. Denies: New Symptoms - Review of Systems General: Denies: Fever, Malaise Pulmonary: Reports: No Symptoms Cardiovascular: Reports: No Symptoms Gastrointestinal: Reports: No Symptoms Genitourinary: Reports: No Symptoms Musculoskeletal: Denies: Leg Pain Skin: Reports: Other (erythema left hip ) Neurological: Reports: No Symptoms Psychiatric: Reports: No Symptoms - Patient Data Vitals - Most Recent: Last Vital Signs Temp 97.4 F 08/15/20 07:34 Pulse 68 08/15/20 07:34 Resp 18 08/15/20 07:34 BP 122/45 L 08/15/20 07:34 Pulse Ox 96 08/15/20 07:34 Weight - Most Recent: 252 lb 3.2 oz I&O - Last 24 hours: Intake & Output 08/14/20 08/15/20 08/15/20 22:59 06:59 14:59 Intake Total 50 50 Balance 50 50 Lab Results - Last 24 hrs: Laboratory Results - last 24 hr 08/15/20 08/15/20 Range/Units 07:14 07:14 WBC 11.0 H (5.0-10.0) 10^3/uL RBC 3.38 L (4.50-6.00) 10^6/uL Hgb 10.4 L (14.0-18.0) g/dL Hct 31.0 L (40.0-54.0) % MCV 91.7 (82.0-94.0) fL MCH 30.8 (27.0-32.0) pg MCHC 33.5 (33.0-38.0) g/dL RDW Coeff of Laura 14.9 (11.0-15.0) % Plt Count 418 H (150-400) 10^3/uL Neut % (Auto) 79.4 (35-85) % Lymph % (Auto) 9.3 L (10-55) % [place] % (Auto) 7.7 (0-16) % Eos % (Auto) 3.4 (0-5) % Baso % (Auto) 0.2 (0-3) % Neut # (Auto) 8.74 H (1.80-7.00) 10^3/uL Lymph # (Auto) 1.03 (1.00-4.80) 10^3/uL [place] # (Auto) 0.85 H (0.00-0.80) 10^3/uL Eos # (Auto) 0.38 (0.00-0.45) 10^3/uL Baso # (Auto) 0.02 10^3/uL Sodium 137 (136-145) mEq/L Potassium 5.2 H (3.5-5.0) mEq/L Chloride 103 (98-106) mEq/L Carbon Dioxide 26 (21-32) mmol/L BUN 27 H (7-18) mg/dL Creatinine 1.8 H (0.7-1.3) mg/dL Est Cr Clr Drug Dosing 41.31 mL/min Estimated GFR (MDRD) 37 L (>=60) mL/min Glucose 70 L (75-99) mg/dL Calcium 8.6 (8.4-10.1) mg/dL C-Reactive Protein 19.5 H (0.2-0.8) mg/dL Med Orders - Current: Current Medications Acetaminophen (Tylenol Extra Strength) 1,000 mg PO Q6H PRN PRN Reason: Pain (Mild 1-3)/fever Last Admin: 08/15/20 03:52 Dose: 1,000 mg Documented by: Alogliptin Benzoate (Alogliptin) 12.5 mg PO DAILY [facility] Last Admin: 08/15/20 07:36 Dose: 12.5 mg Documented by: Aspirin (Ecotrin) 325 mg PO BEDTIME [facility] Last Admin: 08/14/20 19:00 Dose: 325 mg Documented by: Atorvastatin Calcium (Lipitor) 20 mg PO BEDTIME [facility] Last Admin: 08/14/20 19:00 Dose: 20 mg Documented by: Ceftriaxone Sodium (Rocephin) 2 gm IVPUSH Q24H [facility] Last Admin: 08/14/20 16:01 Dose: 2 gm Documented by: Cholecalciferol (Vitamin D3) 125 mcg PO DAILY [facility] Last Admin: 08/15/20 07:35 Dose: 125 mcg Documented by: Dextrose/Water (Dextrose 50% In Water) 50 ml IV ASDIRECTED PRN PRN Reason: Hypoglycemia Enoxaparin Sodium (Lovenox) 30 mg SUBCUT BEDTIME [facility] Last Admin: 08/14/20 19:00 Dose: 30 mg Documented by: Folic Acid (Folic Acid) 1 mg PO DAILY [facility] Last Admin: 08/15/20 07:35 Dose: 1 mg Documented by: Glucagon (Glucagen) 1 mg IM ASDIRECTED PRN PRN Reason: Hypoglycemia Clindamycin Phosphate 600 mg/ (Premix) 50 mls @ 100 mls/hr IV Q8H [facility] Last Admin: 08/15/20 07:34 Dose: 100 mls/hr Documented by: Insulin Glargine (Lantus) 34 unit SUBCUT BID [facility] Last Admin: 08/15/20 07:37 Dose: 34 unit Documented by: Magnesium Oxide (Magnesium Oxide) 500 mg PO DAILY [facility] Last Admin: 08/15/20 07:36 Dose: 500 mg Documented by: Metoprolol Tartrate (Lopressor) 25 mg PO BID [facility] Last Admin: 08/15/20 07:34 Dose: 25 mg Documented by: Morphine Sulfate (Morphine) 2 mg IVPUSH Q2H PRN PRN Reason: Pain (severe 7-10) Ondansetron HCl (Zofran) 4 mg IV Q6H PRN PRN Reason: Nausea/Vomiting - Exam Quality Assessment: Reports: DVT Prophylaxis General: Reports: Alert, Oriented, No Acute Distress Neck: Reports: Supple Lungs: Reports: Clear to Auscultation, Normal Respiratory Effort Cardiovascular: Reports: Regular Rate, Regular Rhythm GI/Abdominal Exam: Normal Bowel Sounds, Soft, Non-Tender, No Organomegaly, No Distention, No Abnormal Bruit, No Mass, Pelvis Stable Extremities: Increased Warmth (left hip- improved from yesterday ), Redness (left hip etending to buttock, improved from yesterday, area less firm ) Wound/Incisions: Reports: Erythema Improving Neurological: Reports: No New Focal Deficit Psy/Mental Status: Reports: Alert, Normal Affect, Normal Mood
[2020-08-15] MEDS ORDERED: cefTRIAXone 2 GM Vial IM ONE (11:30)
[2020-08-15] MEDS ORDERED: Lidocaine 1% 30 ML SDV INJECT ONE (11:37)
== END 2020-08-15 12:48 | disposition home health service (06) | DRG 603 ==
LOC: CC.MS 14:55 → UNDOADMIN 14:55 → CC.MS 16:14
PROVIDERS: ADMIT Family Medicine; ATTEND Family Medicine
DX: L03.116 Cellulitis of left lower limb (principal); E78.5 Hyperlipidemia, unspecified; I10 Essential (primary) hypertension; N28.9 Disorder of kidney and ureter, unspecified
CPT/HCPCS: 36415; 80048; 82962; 85025; 86140; 93971-LT; 97530-GP; A9270-GY; J0696; J1650; J3490

== ENCOUNTER → 2021-12-07 | Day surgery (SDC) | payer MEDICARE, BC ==
[~2021-12-07] MED LIST changes: -Lactated Ringers 1,000 ML IV SCH; +Phenylephrine 1% 10 MG/ML SDV ONE; -Propofol 200 MG/20 ML SDV IV ONE; +Propofol 200 MG/20 ML SDV ONE; +fentaNYL 100 MCG/2 ML SDV ONE
[2021-12-07] MEDS: Lactated Ringers 1,000 ML IV SCH (08:27)
== END ==
LOC: CC.SDS 12:48
PROVIDERS: ATTEND Family Medicine
DX: Z12.11 Encounter for screening for malignant neoplasm of colon (principal); D12.2 Benign neoplasm of ascending colon; K57.30 Diverticulosis of large intestine without perforation or abscess without bleeding; I10 Essential (primary) hypertension; E78.5 Hyperlipidemia, unspecified; E11.9 Type 2 diabetes mellitus without complications; N40.1 Benign prostatic hyperplasia with lower urinary tract symptoms; R35.1 Nocturia; L98.419 Non-pressure chronic ulcer of buttock with unspecified severity; L03.317 Cellulitis of buttock; I25.10 Atherosclerotic heart disease of native coronary artery without angina pectoris; E55.9 Vitamin D deficiency, unspecified; Z80.0 Family history of malignant neoplasm of digestive organs; Z79.899 Other long term (current) drug therapy; Z79.82 Long term (current) use of aspirin; Z88.2 Allergy status to sulfonamides; Z88.8 Allergy status to other drugs, medicaments and biological substances; Z79.4 Long term (current) use of insulin
CPT/HCPCS: 00812; 82947; J2370; J2704; J3010; J7120